=== PATIENT | male | born 1955 | race Caucasian/White ===

== ENCOUNTER 2019-01-27 12:42 | Emergency (ER) | payer OTHER, SELFPAY ==
[2019-01-27 12:48] VITALS: BP 147/96; PULSE 62; RESP 14; TEMP 36.6; O2SAT 99
--- NOTE | 2019-01-27 12:49 | DI.RAD.S_ITS ---
PROCEDURE: XR TOE RT MIN 2V INDICATIONS: crush injury rt 4th toe TECHNIQUE: Three fourth views of the fourth toe acquired. COMPARISON: None. FINDINGS: Bones: No definite fractures or dislocations. No suspicious bony lesions. There is slight irregularity at the proximal metadiaphyseal junction of the fourth toe, conceivably a nondisplaced fracture. Soft tissues: No suspicious soft tissue densities. IMPRESSION: A definite fracture is not known. Slight irregularity at the base of the proximal phalanx of the fourth digit is noted, and delayed plain films could be obtained to assess for manager of change time that would indicate nondisplaced fracture is present at that site. Dictated by: Aubrey Bah M.D. on 01/27/2019 at 13:18 Approved by: Aubrey Bah M.D. on 01/27/2019 at 13:21
--- NOTE | 2019-01-27 13:26 | ED_ITS ---
HPI - Extremity Injury (Lower) <FRANCESCO Mcdoanld - Last Filed: 01/28/19 01:39> General Chief Complaint: Extremity Injury, Lower Stated Complaint: Thinks broke toe on Rt foot Time Seen by Provider: 01/27/19 12:55 Source: patient Mode of arrival: ambulatory Limitations: no limitations History of Present Illness HPI Narrative: This is a pleasant 63-year-old gentleman, nonsmoker, who presents with significant other with right 4th toe swelling and bruise. He reports he has history of neuropathy. He injured this toe by walking into bed post late at night after using restroom 3 nights ago. The patient reports pain is not too severe but noticed bruising today and was concerned. He denies any other injuries and reports he is able to move affected toe without difficulty. Related Data Home Medications Medication Instructions Recorded Confirmed atorvastatin 40 mg PO DAILY 01/27/19 01/27/19 citalopram 20 mg PO DAILY 01/27/19 01/27/19 diclofenac sodium 50 mg PO TID 01/27/19 01/27/19 gabapentin 300 mg PO TID 01/27/19 01/27/19 lisinopril-hydrochlorothiazide 1 tab PO DAILY 01/27/19 01/27/19 varenicline [Chantix Continuing 1 dose PO DIRECTED 01/27/19 01/27/19 Month Box] Review of Systems <FRANCESCO Mcdonald - Last Filed: 01/28/19 01:39> Review of Systems ROS Unobtainable: All systems reviewed & are unremarkable except as noted in HPI and below PFSH <FRANCESCO Mcdonald - Last Filed: 01/28/19 01:39> Medical History (Updated 01/27/19 @ 13:39 by FRANCESCO Mcdonald) HTN (hypertension) (Acute) Hyperlipidemia (Acute) Neuropathy (Acute) Social History (Updated 01/27/19 @ 13:30 by FRANCESCO Mcdonald) Smoking Status: Never smoker Exam <FRANCESCO Mcdonald - Last Filed: 01/28/19 01:39> Narrative Exam Narrative: General appearance: well developed, well nourished, in no acute distress. Head: normocephalic, atraumatic, no scalp lesions, non-tender. Eye: pupil equal, round. EOMI. Nose: nares patent. Oral: mucosa moist. Neck/Thyroid: neck supple, full range of motion, no visible masses. Skin: no suspicious rashes, lesions over visible areas. Warm and dry. Heart: no clubbing, no cyanosis, no edema. Lungs: Breathing even and unlabored. No stridor. No accessory muscles used. Chest: normal shape and expansion. Abdomen: non-obese, non-distended. Neurologic: alert and oriented. Cognitive exam, LABOR RELATIONS SPECIALIST and PNS grossly intact on informal exam. Psych: good eye contact, normal affect. Initial Vital Signs Initial Vital Signs: Vital Signs Temperature 97.9 F 01/27/19 12:48 Pulse Rate 62 01/27/19 12:48 Respiratory Rate 14 01/27/19 12:48 Blood Pressure 147/96 H 01/27/19 12:48 Pulse Oximetry 99 01/27/19 12:48 Extrem Right upper extremity: normal to inspection and full ROM Left upper extremity: normal to inspection and full ROM Right lower extremity: foot Details: normal capillary refill, toes with normal ROM, edema (mild to R 4th toe on dorsum and plantar aspect), ecchymosis (R 4th toe on dorsum and plantar aspect), vascular exam Details: dorsalis pedis pulse present, posterior tibial pulse present and normal capillary refill and tendon exam Details: active flexion normal and active extension normal; no tenderness Left lower extremity: normal to inspection and full ROM <Morenita Levi MD - Last Filed: 01/30/19 07:10> Initial Vital Signs Initial Vital Signs: Vital Signs Temperature 97.9 F 01/27/19 12:48 Pulse Rate 62 01/27/19 12:48 Respiratory Rate 14 01/27/19 12:48 Blood Pressure 147/96 H 01/27/19 12:48 Pulse Oximetry 99 01/27/19 12:48 Course <FRANCESCO Mcdonald - Last Filed: 01/28/19 01:39> Orders Ordered: ED Orders 01/27/19 12:49 XR toe RT min 2V Stat Vital Signs - 8 hr 01/27/19 12:48 Temperature 97.9 F Pulse Rate 62 Respiratory Rate 14 Blood Pressure 147/96 H Pulse Oximetry 99 <Morenita Levi MD - Last Filed: 01/30/19 07:10> Orders Ordered: ED Orders 01/27/19 12:49 XR toe RT min 2V Stat Vital Signs - 8 hr 01/27/19 12:48 Temperature 97.9 F Pulse Rate 62 Respiratory Rate 14 Blood Pressure 147/96 H Pulse Oximetry 99 MDM - Extremity Injury (Lower) <FRANCESCO Mcdonald - Last Filed: 01/28/19 01:39> Differential Diagnosis Likely fracture of toe and other (toe sprain, occult toe fracture) Medical Records Attestation: I reviewed the patient's medical records. Imaging Data XR-Toe R: Radiologist's impression: [address] [address] XRay Report Signed Patient: Matty Dunbar SMR#: [id number] : 6Acct:[id number] Age/Sex: 63 / MDate of Service: 01/27/19 Loc: ED Accession Number: [id number] Procedure: XR toe RT min 2V Ordering Provider: Daniel Bazan PROCEDURE: XR TOE RT MIN 2V INDICATIONS: crush injury rt 4th toe TECHNIQUE: Three fourth views of the fourth toe acquired. COMPARISON: None. FINDINGS: Bones: No definite fractures or dislocations. No suspicious bony lesions. There is slight irregularity at the proximal metadiaphyseal junction of the fourth toe, conceivably a nondisplaced fracture. Soft tissues: No suspicious soft tissue densities. IMPRESSION: A definite fracture is not known. Slight irregularity at the base of the proximal phalanx of the fourth digit is noted, and delayed plain films could be obtained to assess for microsoft exchange administrator time that would indicate nondisplaced fracture is present at that site. Dictated by: Aubrey Bah M.D. on 01/27/2019 at 13:18 Approved by: Aubrey Bah M.D. on 01/27/2019 at 13:21 [facility] Narrative Medical decision making narrative: The patient sustained right 4th toe injury by walking into bed post 3 nights ago. Today, he noticed increasing swelling and discoloration and came in to ED for an evaluation. The patient reports pain is not significant and not sure if this is due to paresthesia. The x-ray test shows on right toe no definite fracture or dislocation at this time. The affected toe has diilp-taped and the patient declined the postop shoes at this time stating he has shoe insert could work as hard sole shoes. Return pre cautions were discussed with the patient and patient advised to follow up with his primary care physician if the pain persists for another x-ray test. Patient agrees with treatment plan and no further questions were expressed at this time. Discharge Plan Departure Patient Disposition: Home Clinical Impression: Sprain of toe Qualifiers: Encounter type: initial encounter Qualified Code(s): S93.509A - Unspecified sprain of unspecified toe(s), initial encounter Discharge Date/Time: 01/27/19 13:46 Instructions: DI for Toe Sprain Activity Restrictions/Additional Instructions: You have been diagnosed with [toe sprain. According to the x-ray test today there is no definite fractures or dislocations are seen but some irregularity at the base of the 5th proximal phalanx of affected toe. If discomfort and swelling persists, please ask her provider to repeat the x-ray test. We dilip tape the toe for splint affect. Please continue to use hard sole shoe and if needed for support]. What to do: *Take your medications as directed. You can take [id number] Tylenol or Motrin as needed for discomfort. You could elevate and ice pack on affected toe as needed for swelling. *Follow up with your primary care provider in 2-3 days, call for an appointment. Let them know you were seen in the ED and that we asked you to be seen in follow up. *Return to ED if you have any new, worsening, or concerning symptoms, such as [increasing pain, swelling, warmth, redness, drainage, any acute concerns]. Prescriptions: No Action atorvastatin 40 mg Tablet 40 mg PO DAILY RF: 0 citalopram 20 mg Tablet 20 mg PO DAILY RF: 0 gabapentin 300 mg Capsule 300 mg PO TID RF: 0 diclofenac sodium 50 mg Tablet,Delayed Release (Dr/Ec) 50 mg PO TID RF: 0 lisinopril-hydrochlorothiazide 10-12.5 mg Tablet 1 tab PO DAILY RF: 0 Chantix Continuing Month Box 1 mg Tablet 1 dose PO DIRECTED RF: 0 Referrals: [facility] [Outside]
== END 2019-01-27 13:46 | disposition home or self-care (01) ==
PROVIDERS: Emergency Provider Nurse Practitioner Family
DX: S93.509A Unspecified sprain of unspecified toe(s), initial encounter (principal)
CPT/HCPCS: 73660; 99282; 99283

== ENCOUNTER → 2019-12-29 16:01 | Outpatient (CLI) | payer OTHER, SELFPAY ==
--- NOTE | 2019-12-29 | DI.MRI.S_ITS ---
PROCEDURE: MR LUMBAR SPINE WO CON INDICATIONS: Sciatica, right side TECHNIQUE: Noncontrast sagittal T1 spin echo and T2 fast echo, sagittal STIR, axial T1 and T2 fast spin echo through the lumbar spine. In cases with scoliosis, additional coronal T2 fast spin echo may be performed. COMPARISON: Outside Facility, RG, XR L-SPINE 2-3V, 03/24/2010, 15:54. Outside Facility, RG, MRI L-SPINE W/O CONTRAST, 06/17/2011, 15:28. Outside Facility, RG, XR L-SPINE 4-6V, 04/22/2019, 14:38. Outside Facility, RG, MRI L-SPINE W/O CONTRAST, 03/12/2019, 16:12. FINDINGS: Image quality: Excellent. Alignment and Curvature: There is mild to moderate levoconvex lumbar scoliosis. Minimal anterolisthesis is seen at the L5-S1 level. Bone Marrow: Marrow is of normal overall signal. No acute vertebral body compression fractures. Spinal Cord: Conus medullaris terminates at the L1 level. Visualized cord demonstrates normal signal and size. Paraspinous Soft Tissues: No paravertebral masses. T12-L1: Normal appearance. L1-L2: No significant abnormality is seen. L2-L3: The disc height and disc signal are relatively well preserved. Bridging endplate osteophytes are seen. Mild generalized disc bulge is seen. Mild facet joint hypertrophy is seen. No significant neural foraminal or central canal narrowing can be seen. When comparison is made with the prior examination, these findings are similar. L3-L4: The disc height and disc signal are relatively well preserved. Mild to moderate disc bulge is seen. Mild to moderate facet hypertrophy is seen at this level. There is mild to moderate right-sided and no significant left-sided neural foraminal narrowing seen. Mild central canal narrowing is seen. When comparison is made with the prior examination, these findings are similar. L4-L5: Moderate loss of disc height is seen. Loss of disc signal is seen. Moderate disc bulge is seen, which is eccentric to the right. There is a right lateral recess/right foraminal disc extrusion seen, with mild superior migration of the disk material. Prominent facet hypertrophy is seen at this level. There is at least moderate left-sided and moderate to severe right-sided neural foraminal narrowing seen. There is a degree of compression seen upon the exiting nerve roots. Moderate central canal narrowing is seen. There is been mild progression of degenerative change compared to the prior outside MRI. L5-S1: The disc height and disc signal are relatively well preserved. Mild to moderate disc bulge is seen, which is eccentric to the right. There is prominent facet hypertrophy seen, left worse than right. There is at least moderate right-sided and moderate to severe left-sided neural foraminal narrowing seen. There is a degree of compression seen upon the exiting nerve roots. Minimal central canal narrowing is seen. When comparison is made with the prior examination, these findings are similar. IMPRESSION: Multiple levels of lumbar spine degenerative change are seen, which are most prominent inferiorly. The degenerative changes are mildly progressed at the L4-5 level compared to the prior MRI. The degenerative changes otherwise appear stable. Levoconvex scoliosis. Dictated by: Bobby Kemp M.D. on 12/29/2019 at 16:36 Approved by: Bobby Kemp M.D. on 12/29/2019 at 16:42
== END ==
PROVIDERS: PCP Internal Medicine; Referring Provider Internal Medicine; Visit Provider Internal Medicine
DX: M54.31 Sciatica, right side (principal); M47.816 Spondylosis without myelopathy or radiculopathy, lumbar region; M47.817 Spondylosis without myelopathy or radiculopathy, lumbosacral region; M41.86 Other forms of scoliosis, lumbar region
CPT/HCPCS: 72148

== ENCOUNTER → 2020-02-23 14:40 | Outpatient (CLI) | payer OTHER, SELFPAY ==
[2020-02-24 12:34] LABS: COVID19 Sendout Not Detected (Not Detect)
== END ==
PROVIDERS: PCP Internal Medicine; Visit Provider Physician Assistant
DX: Z11.59 Encounter for screening for other viral diseases (principal)
CPT/HCPCS: 87635

== ENCOUNTER 2020-02-26 13:45 | Outpatient (CLI) | payer OTHER, SELFPAY ==
[2020-02-26] VITALS (8 sets, daily range): BP systolic 100–121; BP diastolic 53–69; PULSE 61–73; RESP 12–17; TEMP 36.3; O2SAT 94–98
--- NOTE | 2020-02-26 13:49 | DI.RAD.S_ITS ---
PROCEDURE: PAIN L INTERLAMINAR/CAUDAL INJ INDICATIONS: SPONDYLOSIS COMPARISON: Outside Facility, RG, XR L-SPINE 4-6V, 04/22/2019, 14:38. [facility], MR, MR LUMBAR SPINE WO CON, 12/29/2019, 16:35. FINDINGS: Fluoroscopic spot filming was performed to verify placement of a spinal needle at the L4-L5 level, as labeled on the films. Appropriate location of the needle tip was confirmed by injection of iodinated contrast. IMPRESSION: Intraprocedural examination within normal limits. Dictated by: Bobby Kemp M.D. on 02/26/2020 at 16:26 Approved by: Bobby Kemp M.D. on 02/26/2020 at 16:26
[2020-02-26] MEDS: fentaNYL 100 MCG/2 ML INJ 50 MCG IV (14:40)
[2020-02-26] MEDS: MIDAZOLAM 5 MG/5 ML VIAL IV (14:40)
[2020-02-26] MEDS: DEXAMETHASONE 10 MG/ML VIAL 20 MG INJ (14:49)
[2020-02-26] MEDS: IOPAMIDOL 15 ML VIAL 3 ML INJ (14:49)
[2020-02-26] MEDS: BETAMETHASONE 30 MG/5 ML MDV 6 MG INJ (14:49)
[2020-02-26] MEDS: BUPIVACAINE 0.25% (PF) VIAL 2 ML INJ (14:49)
--- NOTE | 2020-02-26 14:56 | P.PCN_ITS ---
Date/Time/Diagnoses Date of procedure: 02/26/20 Time of procedure: 14:56 Pre-procedure diagnosis: 1. HNP WITH RADICULAR FEATURES, 2. MULTILEVEL CENTRAL STENOSIS, Post-procedure diagnosis: same Procedure Notes Procedure: 1. FLUOROSCOPICALLY GUIDED CONTRAST CONTROLLED INTERLAMINAR EPIDURAL STEROID INJECTION - PARA RIGHT L4/5 Indications: Matty is referred by Dr. Trujillo for treatment of Bilateral Foraminal Stenosis R>L LE symptoms. Physician: Ritesh Martini Total Fluoroscopy time (seconds): 7 Total sedation minutes: 9 Complications: none Procedure in detail & Post-procedure care: FINDINGS Multilevel Central Spinal Stenosis with Nerve Root Compression DESCRIPTION OF PROCEDURE Fluoroscopically guided, contrast-controlled L4/5 translaminar epidural steroid injection. Following review of allergy and review of potential side effects and complications, including, but not necessarily limited to, infection, allergic reaction, local tissue breakdown, temporary as well as permanent nerve injury, paralysis, stroke and possible , the patient indicated that the patient understood and agreed to proceed. An informed consent document was signed by the patient, witnessed by a nurse, and placed in the patient's chart. Additionally, other treatment options including modalities, medications, and physical therapy were reviewed with the patient. After review of previous anaesthesic history and IV conscious sedation the patient was deemed safe to proceed with today?s procedure with IV conscious sedation as ASA class II designation. Safety time-out was performed to confirm patient ID, procedure to be performed and site of procedure. IV sedation was accomplished with a combination of 3mg of Versed and 50mcg of Fentanyl was administered by the RN after DO order, titrated to patient comfort during the course of the procedure while the patient remained responsive to all verbal commands In the prone position, following sterile prep and drape of the lumbar region, the L4/5 translaminar space was identified fluoroscopically. The skin was anesthetized via a 25-gauge, 1.5inch needle with 1% lidocaine solution. At this point, a 22-gauge short bevel spinal needle was atraumatically introduced and advanced under fluoroscopic guidance into the region of the L4/5 translaminar space. Depth was confirmed on lateral view. Radiological data, including multiple fluoroscopic views of the lumbar spine, reveal a spinal needle at the L4/5 translaminar space. Lateral views then show placement of the needle in the epidural space. Subsequent views show contrast material flowing superiorly and inferiorly in the epidural space. No vascular or intrathecal uptake is observed. At this point, using loss of resistance technique with saline and air, the epidural space was entered. This was confirmed following negative aspiration with injection of approximately 1.5cc of Isovue 200, showing excellent epidural flow without vascular or intrathecal uptake. At this point, 1cc of 1% lidocaine solution combined with 3cc or 20mg of dexamethasone and 6mg betamethasone was injected without incident. The patient tolerated the procedure well without signs or symptoms of complications prior to transfer to the recovery area continued monitoring without incident. The patient was then transferred to the recovery area where they were observed for an appropriate period of time after the injection. The patient reported a VAS score of 8 prior to the procedure and a post- procedure VAS of 1. POST OP INSTRUCTIONS The patient was provided a Pain Log to continue to record their response to the target-specific procedure prior to follow-up visit with their referring physician. Additionally, specific post-injection care instructions and a contact number to our office were provided if concerns arise regarding possible complications associated with the procedure are suspected.
== END 2020-02-26 15:31 | disposition home or self-care (01) ==
PROVIDERS: PCP Internal Medicine; Referring Provider Physical Medicine & Rehabilitation; Visit Provider Physical Medicine & Rehabilitation
DX: M51.16 Intervertebral disc disorders with radiculopathy, lumbar region (principal); M48.061 Spinal stenosis, lumbar region without neurogenic claudication
CPT/HCPCS: 62323; J0702; J1100; J2250; J3010

== ENCOUNTER → 2020-05-08 13:18 | Outpatient (CLI) | payer OTHER, SELFPAY ==
[2020-05-08 15:13] LABS: COVID19 -Nasal RAPID Negative (Negative)
== END ==
PROVIDERS: PCP Internal Medicine; Visit Provider Physician Assistant
DX: Z11.59 Encounter for screening for other viral diseases (principal)
CPT/HCPCS: 87635

== ENCOUNTER → 2020-05-19 13:41 | Outpatient (CLI) | payer OTHER, SELFPAY ==
--- NOTE | 2020-05-19 13:42 | DI.RAD.S_ITS ---
PROCEDURE: XR LUMBAR SPINE MIN 4V INDICATIONS: update imaging TECHNIQUE: 5 views of the lumbar spine were acquired. COMPARISON: 04/22/19. FINDINGS: Bones: No fracture. Multilevel degenerative endplate sclerosis and spurring. Diffuse facet arthropathy. Trace retrolisthesis of L3 on L4 and grade 1 anterolisthesis of L4 on L5. Moderate narrowing of the L4-L5 disc space. Mild narrowing of the remaining lumbar disc spaces. Mild levocurvature. Mild bilateral hip joint degeneration. Soft tissues: Overlying bowel gas pattern is normal. No suspicious soft tissue calcifications. Scattered vascular calcifications seen in the aorta. Oblique images: No pars defects. IMPRESSION: Mild levocurvature, as before. Diffuse spondylosis and facet arthropathy. No definite interval change since 04/22/19 Multilevel spondylolisthesis as above. Dictated by: Kelechi De La Fuente M.D. on 05/19/2020 at 15:51 Approved by: Kelechi De La Fuente M.D. on 05/19/2020 at 15:53
== END ==
PROVIDERS: PCP Internal Medicine; Referring Provider Physical Medicine & Rehabilitation; Visit Provider Physical Medicine & Rehabilitation
DX: M47.26 Other spondylosis with radiculopathy, lumbar region (principal); M16.0 Bilateral primary osteoarthritis of hip; M43.16 Spondylolisthesis, lumbar region; M96.1 Postlaminectomy syndrome, not elsewhere classified
CPT/HCPCS: 72110

== ENCOUNTER → 2020-06-08 14:41 | Outpatient (ROUT) | payer OTHER, SELFPAY ==
[2020-06-08 15:20] LABS: Aspartate Aminotransferase 29 IU/L (17-59); Blood Urea Nitrogen 23 mg/dL (9-20); Calcium 9.9 mg/dL (8.4-10.2); Carbon Dioxide 28 mmol/L (22-32); Chloride 104 mmol/L (98-107); Cholesterol 138 mg/dL (140-199); Estimated Glomerular Filt Rate > 60.0 mL/min (>60); Glucose 122 mg/dL (80-110); HDL Cholesterol 34 mg/dL (40-60); HEMOLYSIS < 15 (0-50); LDL Cholesterol Calculated 55 mg/dL (<100); Potassium 4.1 mmol/L (3.4-5.1); Sodium 136 mmol/L (137-145); Triglycerides 246 mg/dL (35-150)
[2020-06-08 15:23] LABS: Hemoglobin A1C% w Est Avg Glu 6.3 % (4.0-6.0)
[2020-06-08 15:51] LABS: Prostate Specific Antigen 0.511 ng/mL (0.10-4.00)
== END ==
PROVIDERS: PCP Internal Medicine; Visit Provider Internal Medicine
DX: Z00.00 Encounter for general adult medical examination without abnormal findings (principal); I10 Essential (primary) hypertension; E78.2 Mixed hyperlipidemia; R73.01 Impaired fasting glucose; Z12.5 Encounter for screening for malignant neoplasm of prostate
CPT/HCPCS: 80048; 80061; 83036; 84153; 84450

== ENCOUNTER → 2020-06-29 12:24 | Outpatient (CLI) | payer OTHER, SELFPAY ==
[2020-06-29 16:25] LABS: COVID19 -Nasal RAPID Negative (Negative)
== END ==
PROVIDERS: PCP Internal Medicine; Visit Provider Physical Medicine & Rehabilitation
DX: Z20.822 Contact with and (suspected) exposure to COVID-19 (principal)
CPT/HCPCS: 87635; C9803

== ENCOUNTER 2020-07-01 09:01 | Outpatient (CLI) | payer OTHER, SELFPAY ==
[2020-07-01] VITALS (9 sets, daily range): BP systolic 88–132; BP diastolic 59–78; PULSE 57–69; RESP 11–18; TEMP 36.3; O2SAT 93–99
--- NOTE | 2020-07-01 09:06 | DI.RAD.S_ITS ---
PROCEDURE: PAIN L/SI FACET INJ/BLK 1STL INDICATIONS: SPONDYLOSIS COMPARISON: [facility], XA, PAIN L INTERLAMINAR/CAUDAL INJ, 02/26/2020, 14:45. FINDINGS: Fluoroscopic spot filming was performed to verify placement of spinal needles on the right at the L4-L5 and L5-S1 level(s), as labeled on the films. Appropriate location(s) of the needle tip(s) was confirmed by injection of iodinated contrast. IMPRESSION: Intraprocedural examination within normal limits. Dictated by: Bobby Kemp M.D. on 07/01/2020 at 9:23 Approved by: Bobby Kemp M.D. on 07/01/2020 at 9:24
[2020-07-01] MEDS: MIDAZOLAM 5 MG/5 ML VIAL IV (09:39)
[2020-07-01] MEDS: fentaNYL 100 MCG/2 ML INJ 50 MCG IV (09:39)
[2020-07-01] MEDS: BUPIVACAINE 0.5% (PF) VIAL 2 ML INJ (09:46)
[2020-07-01] MEDS: IOPAMIDOL 15 ML VIAL 3 ML INJ (09:47)
[2020-07-01] MEDS: BETAMETHASONE 30 MG/5 ML MDV 12 MG INJ (09:47)
--- NOTE | 2020-07-01 09:55 | P.PCN_ITS ---
Date/Time/Diagnoses Date of procedure: 07/01/20 Time of procedure: 09:55 Pre-procedure diagnosis: 1. FACET ARTHROPATHY, 2. AXIAL LBP, 3. MULTILEVEL DDD Post-procedure diagnosis: same Procedure Notes Procedure: 1. FLUOROSCOPICALLY GUIDED CONTRAST CONTROLLED FACET JOINT INJECTIONS RIGHT L4/5, L5/S1 Indications: Matty is referred by Dr. Trujillo for treatment of Axial LBP Physician: Ritesh Martini Total Fluoroscopy time (seconds): 4 Total sedation minutes: 12 Complications: none Procedure in detail & Post-procedure care: FINDINGS Multilevel Facet Arthropathy with Clinically significant axial LBP DESCRIPTION OF PROCEDURE Fluoroscopically guided, contrast-controlled right L4/5, L5/S1 facet joint injections. Following review of allergy and review of potential side effects and complications, including, but not necessarily limited to, infection, allergic reaction, local tissue breakdown, stroke, temporary or permanent nerve injury, paralysis, and possible , the patient indicated that the patient understood and agreed to proceed. An informed consent document was signed by the patient, witnessed by a nurse, and placed in the patient's chart. Additionally, other treatment options including medications, modalities, and physical therapy were reviewed with the patient. After review of previous anaesthesic history and IV conscious sedation the patient was deemed safe to proceed with today?s procedure with IV conscious sedation as ASA class II designation. Safety time-out was performed to confirm patient ID, procedure to be performed and site of procedure. IV sedation was accomplished with a combination of 3mg of Versed and 50mcg of Fentanyl was administered by the RN after DO order, titrated to patient comfort during the course of the procedure while the patient remained responsive to all verbal commands. In the prone position, following sterile prep and drape of the lumbar region, the posterior aspect of the right L4/5, L5/S1 facet joints were identified fluoroscopically. The skin was anesthetized via a 25-gauge 1.5-inch needle with 1% lidocaine solution into the corresponding facet joints. At this point, a 22- gauge 3.5-inch spinal needle was atraumatically introduced and advanced under fluoroscopic guidance into the corresponding facet joints. Following negative aspiration, injections of approximately 0.2-cc of Isovue 200 confirmed i nterarticular placement without vascular uptake. Radiological data, including multiple fluoroscopic views of the lumbosacral spine, reveal a spinal needle at the right L4/5, L5/S1 facet joints. Subsequent views show flow of contrast material both superiorly and inferiorly within the joint space without vascular or intrathecal uptake. At this point, a total of 0.5cc including a mixture of 0.25cc Marcaine and 0.25cc betamethasone was injected without complication into each of the corresponding facet joints. The procedure tolerated the procedure well without signs or symptoms of complic ations prior to transfer to the recovery area continued monitoring without incident. The patient was then transferred to the recovery area where they were observed for an appropriate period of time after the injection. The patient reported a VAS score of 7 prior to the procedure and a post-procedure VAS of 0. POST OP INSTRUCTIONS The patient was provided a Pain Log to continue to record their response to the target-specific procedure prior to follow-up visit with their referring physician. Additionally, specific post-injection care instructions and a contact number to our office were provided if concerns arise regarding possible complications associated with the procedure are suspected.
== END 2020-07-01 10:21 | disposition home or self-care (01) ==
LOC: RAD 09:06
PROVIDERS: PCP Internal Medicine; Referring Provider Physical Medicine & Rehabilitation; Visit Provider Physical Medicine & Rehabilitation
DX: M47.816 Spondylosis without myelopathy or radiculopathy, lumbar region (principal); M47.817 Spondylosis without myelopathy or radiculopathy, lumbosacral region; M54.5 Low back pain
CPT/HCPCS: 64493; 64494; 99152; J0702; J2250; J3010

== ENCOUNTER → 2020-08-06 20:30 | Outpatient (ROUT) | payer OTHER, SELFPAY ==
[2020-08-06 20:54] LABS: Appearance Urine UA SL CLOUDY; Bilirubin Urine UA NEGATIVE (NEGATIVE); Color Urine UA YELLOW; Glucose Urine UA NEGATIVE (Negative); Ketones Urine UA NEGATIVE (NEGATIVE); Leukocyte Esterase Urine UA 2+ (NEGATIVE); Nitrite Urine UA NEGATIVE (Negative); Occult Blood Urine UA 2+ (Negative); Protein Urine UA TRACE (Negative); Specific Gravity Urine UA 1.025 (1.000-1.035); Urobilinogen Urine UA 0.2 E.U./dL (0.2)
[2020-08-06 21:18] LABS: Amorphous Sediment Urine 1+; Bacteria Urine Many (>30); Culture Indicated Urine Specimen Cultured; RBC Urine 30-100/HPF (0-5/HPF); Renal Epithelial Cells Urine 0-1/HPF (0-1/HPF); Squamous Epithelial Cell Urine 1-5 /HPF (0-5/HPF); Transitional Epi Cells Urine 0-1/HPF (0-5/HPF); WBC Urine 30-100/HPF (0-5/HPF); White Blood Cell Casts Urine 5-10/LPF
== END ==
PROVIDERS: PCP Internal Medicine; Visit Provider Physician Assistant
DX: N39.0 Urinary tract infection, site not specified (principal); R35.0 Frequency of micturition
CPT/HCPCS: 81001; 87077; 87086; 87147

== ENCOUNTER → 2020-09-13 14:10 | Outpatient (CLI) | payer OTHER, SELFPAY ==
[2020-09-13 17:57] LABS: COVID19 -Nasal RAPID Negative (Negative)
== END ==
PROVIDERS: PCP Internal Medicine; Visit Provider Physical Medicine & Rehabilitation
DX: Z01.812 Encounter for preprocedural laboratory examination (principal); Z20.822 Contact with and (suspected) exposure to COVID-19
CPT/HCPCS: 87635; C9803

== ENCOUNTER 2020-09-14 10:26 | Outpatient (CLI) | payer OTHER, SELFPAY ==
--- NOTE | 2020-09-14 10:28 | DI.RAD.S_ITS ---
PROCEDURE: PAIN L/S TRANSFORAMINAL INJECT INDICATIONS: SPONDYLOSIS COMPARISON: [facility], , PAIN SI JOINT INJECTION, 09/14/2020, 11:31. FINDINGS: Fluoroscopic spot filming was performed to verify placement of a spinal needle at the L4-L5 level, as labeled on the films. Appropriate location of the needle tip was confirmed by injection of iodinated contrast. IMPRESSION: Intraprocedural examination within normal limits. Dictated by: Bobby Kemp M.D. on 09/14/2020 at 12:10 Approved by: Bobby Kemp M.D. on 09/14/2020 at 12:11
--- NOTE | 2020-09-14 10:28 | DI.RAD.S_ITS ---
PROCEDURE: PAIN SI JOINT INJECTION INDICATIONS: SACROILIAC DISORDER COMPARISON: [facility], XA, PAIN L/S TRANSFORAMINAL INJECT, 09/14/2020, 11:20. FINDINGS: On this intraprocedural image, there is a spinal needle seen overlying the inferior aspect of the right sacroiliac joint. The appropriate position of the tip of the needle was confirmed by injection of a small amount of iodinated contrast. IMPRESSION: Intraprocedural examination within normal limits. Dictated by: Bobby Kemp M.D. on 09/14/2020 at 12:11 Approved by: Bobby Kemp M.D. on 09/14/2020 at 12:11
[2020-09-14 11:15] VITALS: BP 134/77; PULSE 51; RESP 12; O2SAT 99
[2020-09-14] MEDS: fentaNYL 100 MCG/2 ML INJ 50 MCG IV (11:15)
[2020-09-14] MEDS: MIDAZOLAM 5 MG/5 ML VIAL IV (11:15)
[2020-09-14 11:20] VITALS: BP 135/81; PULSE 54; RESP 10; O2SAT 96
[2020-09-14] MEDS: IOPAMIDOL 15 ML VIAL 3 ML INJ (11:21)
[2020-09-14] MEDS: BETAMETHASONE 30 MG/5 ML MDV 6 MG INJ (11:21)
[2020-09-14] MEDS: DEXAMETHASONE 10 MG/ML VIAL 20 MG INJ (11:21)
[2020-09-14] MEDS: BUPIVACAINE 0.5% (PF) VIAL 2 ML INJ (11:22)
[2020-09-14 11:25] VITALS: BP 118/72; PULSE 54; RESP 12; O2SAT 96
[2020-09-14 11:30] VITALS: BP 119/73; PULSE 55; RESP 10; O2SAT 99
--- NOTE | 2020-09-14 11:38 | P.PCN_ITS ---
Date/Time/Diagnoses Date of procedure: 09/14/20 Time of procedure: 11:38 Pre-procedure diagnosis: 1. FORAMINAL STENOSIS WITH LE SYMPTOMS Post-procedure diagnosis: same Procedure Notes Procedure: 1. FLUOROSCOPICALLY GUIDED CONTRAST CONTROLLED TRANSFORAMINAL EPIDURAL STEROID INJECTION - RIGHT L4/5 TFESI Indications: Matty is referred by Dr. Trujillo for treatment of Foraminal Stenosis with Right LE Symptoms Physician: Ritesh Martini Total Fluoroscopy time (seconds): 18 Total sedation minutes: 18 Complications: none Procedure in detail & Post-procedure care: FINDINGS Foraminal Nerve Root Compression secondary to disc disease and facet hypertrophy DESCRIPTION OF PROCEDURE Following review of allergy and review of potential side effects and complications, including, but not necessarily limited to, infection, allergic reaction, local tissue breakdown, stroke, temporary or permanent nerve injury, paralysis, and possible , the patient indicated that the patient understood and agreed to proceed. An informed consent document was signed by the patient, witnessed by a nurse, and placed in the patient's chart. Additionally, other treatment options including medications, modalities, and physical therapy were reviewed with the patient. After review of previous anaesthesic history and IV conscious sedation the patient was deemed safe to proceed with today?s procedure with IV conscious sedation as ASA class II designation. Safety time-out was performed to confirm patient ID, procedure to be performed and site of procedure. IV sedation was accomplished with a combination of 3mg of Versed and 50mcg of Fentanyl was administered by the RN after DO order, titrated to patient comfort during the course of the procedure while the patient remained responsive to all verbal co mmands In the prone position following sterile prep and drape of the lumbar region, the right L4/5 posterior neuroforamen was identified fluoroscopically. The skin was anesthetized via a 25-gauge 1.5-inch needle with 1% lidocaine solution. At this point, a 25-gauge 3.5-inch spinal needle was atraumatically introduced and advanced under fluoroscopic guidance through the posterior right L4/5 n euroforamen to approximately the anterior aspect of the canal. Depth was confirmed on lateral view. Following negative aspiration, injection of approximately 1.5cc of Isovue 200 under live fluoroscopy in the AP view confirmed excellent flow along the nerve root, into the epidural space without vascular or intrathecal uptake observed Radiological data, including multiple fluoroscopic views of the lumbosacral spine, reveal a spinal needle at the right L4/5 posterior neuroforamen. Subsequent views show flow of contrast material flowing superiorly and inferiorly along the nerve root confirming epidural flow. Subsequently, a test dose of 1.5 cc of 1% lidocaine solution was administered and patient was observed for two minutes for signs or symptoms of complications, including abdominal pain, shortness of breath, bilateral upper or lower extremity weakness, nausea and vomiting, prior to steroid injection. At this point, a total of 3cc or 20mg of dexamethasone and 6mg of betamethasone was injected without incident. The procedure tolerated the procedure well without signs or symptoms of complications prior to transfer to the recovery area continued monitoring without incident. The patient was then transferred to the recovery area where they were observed for an appropriate time after the injection. The patient reported a VAS score of 7 prior to the procedure and a post-p rocedure VAS of 0. POST OP INSTRUCTIONS The patient was provided a Pain Log to continue to record their response to the target-specific procedure prior to follow-up visit with their referring physician. Additionally, specific post-injection care instructions and a contact number to our office were provided if concerns arise regarding possible complications associated with the procedure are suspected.
[2020-09-14 11:39] VITALS: BP 113/72; PULSE 58; RESP 18; O2SAT 99
--- NOTE | 2020-09-14 11:39 | PM.PROC.IR.1 ---
Date/Time/Diagnoses Date of procedure: 09/14/20 Time of procedure: 11:39 Pre-procedure diagnosis: Sacroiliac joint pain/DJD Post-procedure diagnosis: same Procedure Notes Procedure: Fluoroscopically guided contrast controlled right sacroiliac joint injection Indications: Matty is referred by Dr. Trujillo for treatment of right sacroiliac joint DJD Physician: Ritesh Martini Total Fluoroscopy time (seconds): 18 Total sedation minutes: 18 Complications: none Procedure in detail & Post-procedure care: DESCRIPTION OF PROCEDURE Fluoroscopically guided, contrast controlled right sacroiliac joint injection Following review of allergies and review of potential side effects and complications, including, but not necessarily limited to, infection, allergic reaction, local tissue breakdown, temporary as well as permanent nerve injury, paralysis, stroke and possible , the patient indicated that they understood and agreed to proceed. An informed consent was signed by the patient, witnessed by a nurse, and placed in the patient's chart. Additionally, other treatment options including modalities, medications, and physical therapy were reviewed with the patient. After review of previous anaesthesic history and IV conscious sedation the patient was deemed safe to proceed with today?s procedure with IV conscious sedation as ASA class II designation. Safety time-out was performed to confirm patient ID, procedure to be performed and site of procedure. IV sedation was accomplished with a combination of 3mg of Versed and 50mcg of Fentanyl was administered by the RN after DO order, titrated to patient comfort during the course of the procedure while the patient remained responsive to all verbal commands In the prone position following sterile prep and drape of the pelvic region, the hyper lucency on in the inferior aspect of the sacroiliac joint was identified fluoroscopically the skin was anesthetized be a 25 gauge 1 eventual with approximately 2 cc of 1% lidocaine solution. At this point, a 22 gauge 3 in spinal needle was atraumatically introduced and advanced under fluoroscopic guidance into the inferior aspect of the right sacroiliac joint. Following negative aspiration, approximately 0.3cc of Isovue-300 was injected confirming intra-articular placement without vascular uptake. Radiographic data, including multiple fluoroscopic views of the pelvis, reveals a spinal needle in the sacroiliac joint hyper lucent zone. Subsequent view show flow contrast tear superiorly and inferiorly within the joint capsule without vascular intrathecal uptake. At this point a total of 1 of 0.5% Marcaine was combined with 1cc of 6 mg of betamethasone was injected without incident. The procedure tolerated the procedure well without signs or symptoms of complications prior to transfer to the recovery area continued monitoring without incident. The patient was then transferred to the recovery area with a bur observed for an appropriate time after the injection. The patient reverted a vas score of 7 prior to the procedure and post-procedure vas of 1. POSTOP INSTRUCTIONS The patient was provided with a pain like to continue to record the patient's response to the target specific procedure prior to the patient's follow-up visit with the referring physician. Additionally, specific post injection care instructions and a contact number to our office were provided if concerns arise regarding the possible complications associated with procedure are suspected.
[2020-09-14 11:44] VITALS: BP 123/74; PULSE 62; RESP 18; O2SAT 97
== END 2020-09-14 11:50 | disposition home or self-care (01) ==
LOC: RAD 10:28
PROVIDERS: PCP Internal Medicine; Referring Provider Physical Medicine & Rehabilitation; Visit Provider Physical Medicine & Rehabilitation
DX: M53.3 Sacrococcygeal disorders, not elsewhere classified (principal); M46.1 Sacroiliitis, not elsewhere classified; M48.061 Spinal stenosis, lumbar region without neurogenic claudication; M51.16 Intervertebral disc disorders with radiculopathy, lumbar region
CPT/HCPCS: 27096; 64483; 99152; J0702; J1100; J2250; J3010

== ENCOUNTER → 2021-01-10 08:13 | Outpatient (CLI) | payer OTHER, MEDICARE, SELFPAY ==
[2021-01-10 14:50] LABS: COVID19 -Nasal RAPID Negative (Negative)
== END ==
PROVIDERS: PCP Internal Medicine; Visit Provider Physical Medicine & Rehabilitation
DX: Z20.822 Contact with and (suspected) exposure to COVID-19 (principal)
CPT/HCPCS: 87635; C9803

== ENCOUNTER 2021-01-11 08:15 | Outpatient (CLI) | payer OTHER, SELFPAY ==
[2021-01-11] VITALS (8 sets, daily range): BP systolic 106–117; BP diastolic 68–75; PULSE 62–88; RESP 8–20; TEMP 36.4; O2SAT 95–98
--- NOTE | 2021-01-11 08:16 | DI.RAD.S_ITS ---
PROCEDURE: PAIN L INTERLAMINAR/CAUDAL INJ INDICATIONS: SPONDYLOSIS COMPARISON: [facility], XA, PAIN L INTERLAMINAR/CAUDAL INJ, 02/26/2020, 14:45. FINDINGS: Fluoroscopic spot filming was performed to verify placement of a spinal needle at the L4-L5 level, as labeled on the films. Appropriate location of the needle tip was confirmed by injection of iodinated contrast. IMPRESSION: Intraprocedural examination within normal limits. Dictated by: Bobby Kemp M.D. on 01/11/2021 at 9:14 Approved by: Bobby Kemp M.D. on 01/11/2021 at 9:15
[2021-01-11] MEDS: MIDAZOLAM 5 MG/5 ML VIAL IV (09:24)
[2021-01-11] MEDS: fentaNYL 100 MCG/2 ML INJ 50 MCG IV (09:24)
[2021-01-11] MEDS: BUPIVACAINE 0.25% (PF) VIAL 2 ML INJ (09:29)
[2021-01-11] MEDS: BETAMETHASONE 30 MG/5 ML MDV 6 MG INJ (09:30)
[2021-01-11] MEDS: IOPAMIDOL 15 ML VIAL 3 ML INJ (09:30)
[2021-01-11] MEDS: DEXAMETHASONE 10 MG/ML VIAL 20 MG INJ (09:31)
--- NOTE | 2021-01-11 09:38 | P.PCN_ITS ---
Date/Time/Diagnoses Date of procedure: 01/11/21 Time of procedure: 09:39 Pre-procedure diagnosis: 1. HNP WITH RADICULAR FEATURES, 2. MULTILEVEL CENTRAL STENOSIS, Post-procedure diagnosis: same Procedure Notes Procedure: 1. FLUOROSCOPICALLY GUIDED CONTRAST CONTROLLED INTERLAMINAR EPIDURAL STEROID INJECTION -L4/5 Indications: Matty is referred by Dr. Trujillo for treatment of Bilateral Foraminal Stenosis R>L LE symptoms. Physician: Ritesh Martini Total Fluoroscopy time (seconds): 7 Total sedation minutes: 11 Complications: none Procedure in detail & Post-procedure care: FINDINGS Multilevel Central Spinal Stenosis with Nerve Root Compression DESCRIPTION OF PROCEDURE Fluoroscopically guided, contrast-controlled L4/5 translaminar epidural steroid injection. Following review of allergy and review of potential side effects and complications, including, but not necessarily limited to, infection, allergic reaction, local tissue breakdown, temporary as well as permanent nerve injury, paralysis, stroke and possible , the patient indicated that the patient understood and agreed to proceed. An informed consent document was signed by the patient, witnessed by a nurse, and placed in the patient's chart. Additionally, other treatment options including modalities, medications, and physical therapy were reviewed with the patient. After review of previous anaesthesic history and IV conscious sedation the patient was deemed safe to proceed with today?s procedure with IV conscious sedation as ASA class II designation. Safety time-out was performed to confirm patient ID, procedure to be performed and site of procedure. IV sedation was accomplished with a combination of 2mg of Versed and 50mcg of Fentanyl was administered by the RN after DO order, titrated to patient comfort during the course of the procedure while the patient remained responsive to all verbal commands In the prone position, following sterile prep and drape of the lumbar region, the L4/5 translaminar space was identified fluoroscopically. The skin was anesthetized via a 25-gauge, 1.5inch needle with 1% lidocaine solution. At this point, a 22-gauge short bevel spinal needle was atraumatically introduced and advanced under fluoroscopic guidance into the region of the L4/5 translaminar space. Depth was confirmed on lateral view. Radiological data, including multiple fluoroscopic views of the lumbar spine, reveal a spinal needle at the L4/5 translaminar space. Lateral views then show placement of the needle in the epidural space. Subsequent views show contrast material flowing superiorly and inferiorly in the epidural space. No vascular or intrathecal uptake is observed. At this point, using loss of resistance technique with saline and air, the epidural space was entered. This was confirmed following negative aspiration with injection of approximately 1.5cc of Isovue 200, showing excellent epidural flow without vascular or intrathecal uptake. At this point, 1cc of 1% lidocaine solution combined with 3cc or 20mg of dexamethasone and 6mg betamethasone was injected without incident. The patient tolerated the procedure well without signs or symptoms of complications prior to transfer to the recovery area continued monitoring without incident. The patient was then transferred to the recovery area where they were observed for an appropriate period of time after the injection. The patient reported a VAS score of 6 prior to the procedure and a post- procedure VAS of 0. POST OP INSTRUCTIONS The patient was provided a Pain Log to continue to record their response to the target-specific procedure prior to follow-up visit with their referring physician. Additionally, specific post-injection care instructions and a contact number to our office were provided if concerns arise regarding possible complications associated with the procedure are suspected.
--- NOTE | 2021-01-11 15:34 | PC.NURSE ---
at d/c patient stood at chair, was steady on feet able to transfer to w/c reported that his left thigh felt tight, at that time denied any pain or numbness. D[employer]ED [employer]ER assisted in transferring patient into car and he reported that his left leg felt more numb. Patient left, this RN called spoke with patient and son and educated that this can happen from the numbing medication Dr Martini uses in his injections. Educated that he could come back while we monitor him, he declines and states he has help at home. This RN called to make sure he got in the house safely, He reports he did and that he is sitting in a chair and both his legs are weak and numb. Dr Martini was notified. 1200- Called reassessed patient and both legs continue to be numb and his buttocks. Encouraged him to perform ankle waves and move his legs but continue to be very cautious as his legs are still weak. 1440- He reports that he has more strength and that he is able to walk around slowly. Dr Martini noticed and informed patient that Dr López office will call tomorrow to check in on him but that if he has any question to contact his office.
== END 2021-01-11 10:10 | disposition home or self-care (01) ==
LOC: RAD 08:16
PROVIDERS: PCP Internal Medicine; Referring Provider Physical Medicine & Rehabilitation; Visit Provider Physical Medicine & Rehabilitation
DX: M51.16 Intervertebral disc disorders with radiculopathy, lumbar region (principal); M48.061 Spinal stenosis, lumbar region without neurogenic claudication
CPT/HCPCS: 62323; 99152; J0702; J1100; J2250; J3010

== ENCOUNTER → 2021-04-11 13:40 | Outpatient (CLI) | payer OTHER, MEDICARE, SELFPAY ==
[2021-04-11 15:54] LABS: COVID19 -Nasal RAPID Negative (Negative)
== END ==
PROVIDERS: PCP Internal Medicine; Visit Provider Physical Medicine & Rehabilitation
DX: Z20.822 Contact with and (suspected) exposure to COVID-19 (principal)
CPT/HCPCS: 87635; C9803

== ENCOUNTER 2021-04-12 15:26 | Outpatient (CLI) | payer OTHER, SELFPAY ==
[2021-04-12] VITALS (9 sets, daily range): BP systolic 113–137; BP diastolic 65–84; PULSE 57–69; RESP 11–18; TEMP 36.6; O2SAT 96–100
--- NOTE | 2021-04-12 15:30 | DI.RAD.S_ITS ---
PROCEDURE: PAIN L/S FACET INJ/BLK 1ST GABE COMPARISON: [facility], MAYELA, PAIN SI JOINT INJECTION, 09/14/2020, 11:31. [facility], XA, PAIN L/SI FACET INJ/BLK 1STL, 07/01/2020, 9:46. [facility], XA, PAIN L INTERLAMINAR/CAUDAL INJ, 01/11/2021, 9:30. INDICATIONS: SPONDYLOSIS FINDINGS: Intraoperative fluoroscopic images were obtained which demonstrate spinal needles projecting over the right L4, L5, and S1 facets with intra-articular contrast material visualized. IMPRESSION: Expected appearance of intraprocedural images. Dictated by: Slade Davis M.D. on 04/12/2021 at 17:28 Approved by: Slade Davis M.D. on 04/12/2021 at 17:30
[2021-04-12] MEDS: MIDAZOLAM 5 MG/5 ML VIAL IV (15:54)
[2021-04-12] MEDS: fentaNYL 100 MCG/2 ML INJ 50 MCG IV (15:54)
[2021-04-12] MEDS: BUPIVACAINE 0.5% (PF) VIAL 5 ML INJ (16:00)
[2021-04-12] MEDS: IOPAMIDOL 15 ML VIAL 3 ML INJ (16:00)
[2021-04-12] MEDS: LIDOCAINE 1% 20 ML 10 ML INJ (16:01)
--- NOTE | 2021-04-12 16:12 | P.PCN_ITS ---
Date/Time/Diagnoses Date of procedure: 04/12/21 Time of procedure: 16:12 Pre-procedure diagnosis: 1. FACET ARTHROPATHY Post-procedure diagnosis: same Procedure Notes Procedure: 1. BILATERAL- L4, L5 and S1 DIAGNOSTIC MB BLOCKS with LA Anesthetic Indications: Matty is referred by Dr. Trujillo for treatment of Bilateral Axial LBP. Physician: Ritesh Martini Total Fluoroscopy time (seconds): 11 Total sedation minutes: 11 Complications: none Procedure in detail & Post-procedure care: DESCRIPTION OF PROCEDURE Fluoroscopically guided, contrast-controlled bilateral L4, L5 and S1 medial branch blocks with 0.5cc of 0.5% Marcaine. Following review of allergy and review of potential side effects and complications, including, but not necessarily limited to, infection, allergic reaction, local tissue breakdown, nerve injury, paralysis, stroke and possible , the patient indicated that the patient understood and agreed to proceed. An informed consent document was signed by the patient, witnessed by a nurse, and placed in the patient's chart. After review of previous anaesthesic history and IV conscious sedation the patient was deemed safe to proceed with today's procedure with IV conscious sedation as ASA class II designation. Safety time-out was performed to confirm patient ID, procedure to be performed and site of procedure. IV sedation was accomplished with a combination of 2mg of Versed and 50mcg of Fentanyl was administered by the RN after DO order, titrated to patient comfort during the course of the procedure while the patient remained responsive to all verbal commands In the prone position, following sterile prep and drape of the lumbar region, the right L4, L5 and S1 anatomical location of the medial branch of the dorsal ramus was identified fluoroscopically. Subsequently an anesthetic skin wheal using 1% lidocaine solution was initiated at each of the anatomical spots. Subsequently then a 22-gauge 3.5-inch spinal needle was atraumatically introduced and advanced under fluoroscopic guidance at each of the corresponding sites at the right L4, L5 and S1 MB. After negative aspiration, 0.2cc of Isovue 200 was injected, confirming placement without vascular or intrathecal uptake. Subsequently then 0.5cc of 0.5% Marcaine solution was injected at each of the corresponding sites at the right L4, L5 and S1 medial branch locations. The identical procedure was replicated on the left. The patient tolerated the procedure well without signs or symptoms of complications prior to transfer to the recovery area continued monitoring without incident. Post-procedure, the patient was monitored initiating provocative activities to measure the amount of relief from block of the facetogenic pain. The patient reported a VAS of 7 prior to the procedure and a post-procedure VAS of 1. It has been a pleasure to assist in the diagnostic and therapeutic care of your patient. POST OP INSTRUCTIONS The patient was provided with a Pain Log to complete over the next several hours and subsequent days prior to the patient's follow up with the ordering physician. If the patient has tester sound relief to the solution applied, then they may be a candidate for medial branch rhizotomy. The patient is aware, was provided, once again, with a Pain Log and will follow up with the referring physician for review and clinical correlation
== END 2021-04-12 16:31 | disposition home or self-care (01) ==
LOC: RAD 15:29
PROVIDERS: PCP Internal Medicine; Referring Provider Physical Medicine & Rehabilitation; Visit Provider Physical Medicine & Rehabilitation
DX: M47.816 Spondylosis without myelopathy or radiculopathy, lumbar region (principal); M47.817 Spondylosis without myelopathy or radiculopathy, lumbosacral region
CPT/HCPCS: 64493; 64494; 99152; J2250; J3010

== ENCOUNTER → 2021-08-15 14:10 | Outpatient (CLI) | payer OTHER, SELFPAY ==
[2021-08-15 16:06] LABS: COVID19 -Nasal RAPID Negative (Negative)
== END ==
PROVIDERS: PCP Internal Medicine; Visit Provider Physical Medicine & Rehabilitation
DX: Z20.822 Contact with and (suspected) exposure to COVID-19 (principal)
CPT/HCPCS: 87635; C9803

== ENCOUNTER 2021-08-16 07:30 | Outpatient (CLI) | payer OTHER, SELFPAY ==
[2021-08-16] VITALS (11 sets, daily range): BP systolic 108–118; BP diastolic 6–77; PULSE 67–79; RESP 13–18; TEMP 36.2; O2SAT 94–96
--- NOTE | 2021-08-16 08:05 | DI.RAD.S_ITS ---
PROCEDURE: PAIN L/S MED/LAT N RFA BILAT INDICATIONS: Spondylosis COMPARISON: [facility], , PAIN L/S FACET INJ/BLK 1ST GABE, 04/12/2021, 16:56. FINDINGS: Fluoroscopic spot filming was performed to verify placement of spinal needles on both sides at the L4, L5, and S1 levels, as labeled on the films. IMPRESSION: Intraprocedural examination within normal limits. Dictated by: Bobby Kemp M.D. on 08/16/2021 at 11:54 Approved by: Bobby Kemp M.D. on 08/16/2021 at 11:54
[2021-08-16] MEDS: MIDAZOLAM 5 MG/5 ML VIAL IV (08:15)
[2021-08-16] MEDS: fentaNYL 100 MCG/2 ML INJ (08:15)
[2021-08-16] MEDS: BUPIVACAINE 0.5% (PF) VIAL 5 ML INJ (08:27)
[2021-08-16] MEDS: LIDOCAINE 1% 20 ML (08:27)
--- NOTE | 2021-08-16 08:54 | P.PCN_ITS ---
Date/Time/Diagnoses Date of procedure: 08/16/21 Time of procedure: 08:54 Pre-procedure diagnosis: 1. RECALCITRANT FACET ARTHROPATHY Post-procedure diagnosis: same Procedure Notes Procedure: 1. BILATERAL L4 AND L5 MEDIAL BRANCH RADIOFREQUENCY NEUROTOMY AND S1 DORSAL RAMUS BRANCH RADIOFREQUENCY NEUROTOMY Indications: Matty is referred by Dr. Trujillo for treatment of facet arthropathy. Physician: Ritesh Martini Total Fluoroscopy time (seconds): 20 Total sedation minutes: 38 Complications: none Procedure in detail & Post-procedure care: DESCRIPTION OF PROCEDURE Bilateral L4 and L5 medial branch radiofrequency neurotomy and bilateral S1 dorsal ramus radiofrequency neurotomy under fluoroscopy with conscious sedation. The patient is well known to this clinic having undergone previous facet injections with good but temporary relief. The patient has experienced appropriate, concordant relief with previous facet and median branch blocks but the patient's pain has been recalcitrant to further conservative measures. Therefore, based upon the patient's relief and persistent symptoms, the patient is considered an appropriate candidate for facet rhizotomy. All of the patient's questions regarding the risks versus benefits of the procedure, including, but not limited to, bleeding, infection, temporary as well as lasting nerve injury, paralysis, stroke, and , as well treatment alternatives were answered to satisfaction. After obtaining informed consent, denial of pertinent drug allergies, as well as being made aware of the potential risks of bleeding, infection, spinal cord trauma, paralysis, temporary and permanent nerve damage, seizure, stroke, and possible , the patient was brought to the fluoroscopy suite and positioned prone on the fluoroscopy table. The lumbar region was prepped with Betadine and covered with a fenestrated drape in the usual sterile fashion. Appropriate monitors applied including pulse oximeter, pulse, and blood pressure for regular monitoring throughout the procedure. After review of previous anaesthesic history and IV conscious sedation the patient was deemed safe to proceed with today's procedure with IV conscious sedation as ASA class II designation. Safety time-out was performed to confirm patient ID, procedure to be performed and site of procedure. IV sedation was accomplished with a combination of 2mg of Versed and 50mcg of Fentanyl administered by the RN after DO order, titrated to patient comfort during the course of the procedure while the patient remained responsive to all verbal commands. After local infiltration using 1% lidocaine, under fluoroscopic guidance, a 10- cm RF insulated needle with a 10-mm active tip was positioned parallel to the junction of the right sacral ala and the superior articulating process where the S1 dorsal ramus resides. Needle placement was confirmed with motor stimulation of .5v on the right which produced local stimulation without radicular component. The stimulation was then increased to 2v with, once again, only local multifidus stimulation without radicular component. The needle was then removed and the identical procedure was performed along the length of the right L5 medial branch with motor stimulation at .7v on the right. The identical procedure was once again performed along the length of the right L4 medial branch with motor stimulation of .5v on the right. The medial branches were then anesthetised with 0.5% Marcaine. This was then followed by two discreet lesions performed at 80 degrees Celsius for 90 seconds each. The identical procedure was repeated on the left. The patient tolerated the procedure well without signs or symptoms of complications prior to transfer to the recovery area continued monitoring without incident. The patient was then transferred to the recovery area where they were observed for an appropriate period of time after the injection. The patient reported a VAS score of 9 prior to the procedure and a post-procedure VAS of 0. POST OP INSTRUCTIONS The patient was provided a Pain Log to continue to record the patient's response to the target-specific procedure prior to the patient's follow-up visit with the referring physician. Additionally, specific post-injection care instructions and a contact number to our office were provided if concerns arise regarding possible complications associated with the procedure are suspected.
== END 2021-08-16 09:10 | disposition home or self-care (01) ==
LOC: RAD 07:32
PROVIDERS: PCP Internal Medicine; Referring Provider Physical Medicine & Rehabilitation; Visit Provider Physical Medicine & Rehabilitation
DX: M47.816 Spondylosis without myelopathy or radiculopathy, lumbar region (principal); M47.817 Spondylosis without myelopathy or radiculopathy, lumbosacral region
CPT/HCPCS: 64635; 64636; 99152; 99153; J2250; J3010

== ENCOUNTER → 2022-01-09 14:03 | Outpatient (CLI) | payer OTHER, SELFPAY | PROVIDERS: PCP Internal Medicine; Visit Provider Urology | DX: N40.1 Benign prostatic hyperplasia with lower urinary tract symptoms (principal); N13.8 Other obstructive and reflux uropathy; N39.490 Overflow incontinence; R39.198 Other difficulties with micturition; N39.41 Urge incontinence; R35.0 Frequency of micturition; R33.9 Retention of urine, unspecified; R39.13 Splitting of urinary stream; R82.81 Pyuria | CPT/HCPCS: 51798; 81002; 87086 ==

== ENCOUNTER → 2022-03-21 08:51 | Outpatient (CLI) | payer OTHER, SELFPAY | PROVIDERS: PCP Internal Medicine; Visit Provider Urology | DX: R33.9 Retention of urine, unspecified (principal); N40.1 Benign prostatic hyperplasia with lower urinary tract symptoms; N13.8 Other obstructive and reflux uropathy; R35.0 Frequency of micturition; R39.15 Urgency of urination | CPT/HCPCS: 51798; 81002; 87086; 87147 ==

== ENCOUNTER → 2022-04-13 10:01 | Outpatient (CLI) | payer OTHER, SELFPAY ==
[2022-04-13 12:34] LABS: Hematocrit 43.4 % (41-53); Hemoglobin 15.2 g/dL (13.5-17.5); Mean Corpuscular HGB Conc 34.9 % (30-36); Mean Corpuscular Hemoglobin 32.8 PG (26-34); Mean Corpuscular Volume 93.9 fL (80-100); Platelet Count 178 X10^3/uL (150-400); Red Blood Cell Count 4.62 X10^6/uL (4.5-5.9); Red Cell Distribution Width 12.9 % (11.6-14.8); White Blood Cell Count 6.4 X10^3/uL (4.5-11.0)
[2022-04-13 14:04] LABS: Alanine Aminotransferase 25 IU/L (<50); Albumin 4.3 g/dL (3.5-5.0); Albumin Globulin Ratio 1.5 (1.0-2.8); Alkaline Phosphatase 130 U/L (38-126); Aspartate Aminotransferase 26 IU/L (17-59); BUN Creatinine Ratio 16.5 (6-22); Bilirubin Total 0.4 mg/dL (0.2-1.3); Blood Urea Nitrogen 18 mg/dL (9-20); Calcium 9.5 mg/dL (8.4-10.2); Carbon Dioxide 21 mmol/L (22-32); Chloride 106 mmol/L (98-107); Cholesterol 136 mg/dL (140-199); Estimated Glomerular Filt Rate > 60 mL/min (>60); Globulin 2.9 g/dL (1.7-4.1); Glucose 118 mg/dL (80-110); HDL Cholesterol 38 mg/dL (40-60); HEMOLYSIS 20 (0-50); LDL Cholesterol Calculated 47 mg/dL (<100); Potassium 4.3 mmol/L (3.4-5.1); Sodium 139 mmol/L (137-145); Total Protein 7.2 g/dL (6.3-8.2); Triglycerides 257 mg/dL (35-150)
[2022-04-13 14:24] LABS: Prostate Specific Antigen 1.08 ng/mL (0.10-4.00)
[2022-04-13 14:29] LABS: TSH w/ Reflex to FT4 1.46 uIU/mL (0.47-4.68)
== END ==
PROVIDERS: PCP Internal Medicine; Referring Provider Internal Medicine; Visit Provider Internal Medicine
DX: E78.2 Mixed hyperlipidemia (principal); I10 Essential (primary) hypertension; N13.8 Other obstructive and reflux uropathy; N40.1 Benign prostatic hyperplasia with lower urinary tract symptoms
CPT/HCPCS: 36415; 80053; 80061; 84153; 84443; 85027

== ENCOUNTER 2022-05-02 12:30 | Outpatient (CLI) | payer OTHER, SELFPAY ==
[2022-05-02] VITALS (7 sets, daily range): BP systolic 113–138; BP diastolic 71–84; PULSE 58–81; RESP 12–18; TEMP 36.4; O2SAT 98–100
--- NOTE | 2022-05-02 12:32 | DI.RAD.S_ITS ---
PROCEDURE: PAIN SI JOINT INJECTION INDICATIONS: JOINT DYSFUNCTION COMPARISON: [facility], , PAIN SI JOINT INJECTION, 09/14/2020, 11:31. FINDINGS: On these intraprocedural images, there is a spinal needle seen overlying the inferior aspect of the right sacroiliac joint. Appropriate position of the tip of the needle was confirmed by injection of a small amount of iodinated contrast. IMPRESSION: Successful sacroiliac joint injection. Dictated by: Bobby Kemp M.D. on 05/02/2022 at 14:24 Approved by: Bobby Kemp M.D. on 05/02/2022 at 14:24
[2022-05-02] MEDS: MIDAZOLAM 2 MG/2 ML VIAL IV (13:35)
[2022-05-02] MEDS: BETAMETHASONE 30 MG/5 ML MDV 12 MG INJ (13:40)
[2022-05-02] MEDS: BUPIVACAINE 0.5% (PF) VIAL 2 ML INJ (13:40)
[2022-05-02] MEDS: IOPAMIDOL 15 ML VIAL 3 ML INJ (13:40)
--- NOTE | 2022-05-02 13:42 | PC.NURSE ---
1335 2mg midazolam was ordered IV for sedation. Upon push of medication, IV infiltrated and medication was outside of the vein. Stopped administration immediately and applied warm cloth to area. Dr Martini aware and then proceeded with procedure. Vital signs stable, please see chart.
--- NOTE | 2022-05-02 13:53 | PM.PROC.IR.1 ---
Date/Time/Diagnoses Date of procedure: 05/02/22 Time of procedure: 13:54 Pre-procedure diagnosis: Sacroiliac joint pain/DJD Post-procedure diagnosis: same Procedure Notes Procedure: Fluoroscopically guided contrast controlled right sacroiliac joint injection Indications: Matty is referred by Dr. Trujillo for treatment of right sacroiliac joint DJD Physician: Ritesh Martini Total Fluoroscopy time (seconds): 16 Total sedation minutes: 0 Complications: none Procedure in detail & Post-procedure care: DESCRIPTION OF PROCEDURE Fluoroscopically guided, contrast controlled right sacroiliac joint injection Following review of allergies and review of potential side effects and complications, including, but not necessarily limited to, infection, allergic reaction, local tissue breakdown, temporary as well as permanent nerve injury, paralysis, stroke and possible , the patient indicated that they understood and agreed to proceed. An informed consent was signed by the patient, witnessed by a nurse, and placed in the patient's chart. Additionally, other treatment options including modalities, medications, and physical therapy were reviewed with the patient. After review of previous anaesthesic history and IV conscious sedation the patient was deemed safe to proceed with today?s procedure with IV conscious sedation as ASA class II designation. Safety time-out was performed to confirm patient ID, procedure to be performed and site of procedure. IV sedation was attempted but IV infiltrated and thus not administered by the RN after DO order, titrated to patient comfort during the course of the procedure while the patient remained responsive to all verbal commands In the prone position following sterile prep and drape of the pelvic region, the hyper lucency on in the inferior aspect of the sacroiliac joint was identified fluoroscopically the skin was anesthetized be a 25 gauge 1 eventual with approximately 2 cc of 1% lidocaine solution. At this point, a 22 gauge 3 in spinal needle was atraumatically introduced and advanced under fluoroscopic guidance into the inferior aspect of the right sacroiliac joint. Following negative aspiration, approximately 0.3cc of Isovue-300 was injected confirming intra-articular placement without vascular uptake. Radiographic data, including multiple fluoroscopic views of the pelvis, reveals a spinal needle in the sacroiliac joint hyper lucent zone. Subsequent view show flow contrast tear superiorly and inferiorly within the joint capsule without vascular intrathecal uptake. At this point a total of 1cc of 0.5% Marcaine was combined with 1cc of 6 mg of betamethasone was injected without incident. The procedure tolerated the procedure well without signs or symptoms of complications prior to transfer to the recovery area continued monitoring without incident. The patient was then transferred to the recovery area with a bur observed for an appropriate time after the injection. The patient reverted a vas score of 8 prior to the procedure and post-procedure vas of 1. POSTOP INSTRUCTIONS The patient was provided with a pain like to continue to record the patient's response to the target specific procedure prior to the patient's follow-up visit with the referring physician. Additionally, specific post injection care instructions and a contact number to our office were provided if concerns arise regarding the possible complications associated with procedure are suspected.
== END 2022-05-02 14:07 | disposition home or self-care (01) ==
PROVIDERS: PCP Internal Medicine; Referring Provider Physical Medicine & Rehabilitation; Visit Provider Physical Medicine & Rehabilitation
DX: M53.3 Sacrococcygeal disorders, not elsewhere classified (principal); M46.1 Sacroiliitis, not elsewhere classified; N40.1 Benign prostatic hyperplasia with lower urinary tract symptoms; N13.8 Other obstructive and reflux uropathy; N39.41 Urge incontinence; R33.9 Retention of urine, unspecified; F11.90 Opioid use, unspecified, uncomplicated; M96.1 Postlaminectomy syndrome, not elsewhere classified
CPT/HCPCS: 27096; 51798; 81002; 99214; J0702; J2250

== ENCOUNTER → 2022-06-01 16:25 | Outpatient (CLI) | payer OTHER, SELFPAY | PROVIDERS: PCP Internal Medicine; Visit Provider Urology | DX: N40.1 Benign prostatic hyperplasia with lower urinary tract symptoms (principal); N13.8 Other obstructive and reflux uropathy; R33.9 Retention of urine, unspecified | CPT/HCPCS: 51702; 51798; 87077; 87086; 87186 ==

== ENCOUNTER → 2022-06-12 13:59 | Outpatient (CLI) | payer OTHER, MEDICARE, SELFPAY ==
[2022-06-12 14:58] LABS: Estimated Glomerular Filt Rate > 60 mL/min (>60)
== END ==
PROVIDERS: Radiology Body Imaging; PCP Internal Medicine; Referring Provider Urology; Visit Provider Urology
DX: R33.9 Retention of urine, unspecified (principal)
CPT/HCPCS: 36415; 82565

== ENCOUNTER → 2022-06-12 14:05 | Outpatient (CLI) | payer OTHER, MEDICARE, SELFPAY ==
--- NOTE | 2022-06-12 14:06 | DI.RAD.S_ITS ---
PROCEDURE: XR CERVICAL SPINE 4V OR 5V INDICATIONS: Left C6 radiculopathy TECHNIQUE: 5 views of the cervical spine acquired. COMPARISON: None. FINDINGS: Bones: No acute fractures or dislocations to the C7 level. Multilevel disc space narrowing degenerative endplate changes are seen. There is multilevel uncovertebral joint and facet hypertrophy. Oblique views are suboptimally positioned, which mildly compromises evaluation. There is at least mild to moderate multilevel neural foraminal narrowing which is most prominent at the C3-4 level on the left and difficult to evaluate on the right. Soft tissues: No prevertebral soft tissue swelling. IMPRESSION: [id number] multilevel spondylosis. If indicated clinically, cervical spine MRI could be performed for further evaluation. Approved by: Tommy Quiroz M.D. on 06/12/2022 at 21:00
--- NOTE | 2022-06-12 14:06 | DI.RAD.S_ITS ---
PROCEDURE: XR LUMBAR SPINE MIN 4V INDICATIONS: Right SI joint djd TECHNIQUE: 5 views of the lumbar spine were acquired, including bilateral oblique views. COMPARISON: [facility], , XR LUMBAR SPINE MIN 4V, 05/19/2020, 13:48. FINDINGS: Bones: 5 nonrib-bearing vertebrae are present. There is mild levoconvex curvature. 2 mm grade 1 anterolisthesis of L4 on L5 is noted. There is 1-2 mm retrolisthesis of L3 on L4. No vertebral body compression fractures. No suspicious bony lesions. Multilevel disc space narrowing and degenerative endplate changes are seen. Facet hypertrophy is most prominent at the L4-5 level. Soft tissues: Overlying bowel gas pattern is normal. No suspicious soft tissue calcifications. Aortic atherosclerotic calcifications are present. Oblique images: No pars defects. IMPRESSION: 1. Moderate multilevel spondylosis and degenerative spondylolisthesis ease. 2. Mild levoconvex curvature again noted. 3. Overall, findings appear minimally progressed when compared to the exam from 05/19/2020. Approved by: Tommy Quiroz M.D. on 06/12/2022 at 21:05
== END ==
PROVIDERS: PCP Internal Medicine; Referring Provider Physical Medicine & Rehabilitation; Visit Provider Physical Medicine & Rehabilitation
DX: M47.22 Other spondylosis with radiculopathy, cervical region (principal); M43.16 Spondylolisthesis, lumbar region; M47.816 Spondylosis without myelopathy or radiculopathy, lumbar region; M53.3 Sacrococcygeal disorders, not elsewhere classified; I70.0 Atherosclerosis of aorta
CPT/HCPCS: 72050; 72110

== ENCOUNTER → 2022-06-14 12:05 | Outpatient (CLI) | payer OTHER, MEDICARE, SELFPAY ==
--- NOTE | 2022-06-14 12:06 | DI.CT.S_ITS ---
PROCEDURE: CT ABDOMEN PELVIS WO/W CON INDICATIONS: Urinary retention TECHNIQUE: Optional 5 mm thick noncontrast images acquired from the diaphragm to the symphysis pubis. After the administration of intravenous contrast, 5 mm thick images acquired from the diaphragm to the symphysis pubis after a 10-minute delay. 2 mm thick coronal and sagittal reformats were then performed of the kidneys and ureters. For radiation dose reduction, the following was used: automated exposure control, adjustment of mA and/or kV according to patient size. COMPARISON: None. FINDINGS: Image quality: Excellent. Lung bases: Lung bases are clear. Heart size is normal. Urinary system: Both kidneys are normal in size, without hydronephrosis. There is a 4 mm calcification in inferior right kidney. No perinephric fat stranding. There is a large 12 cm simple appearing cyst in the inferior pole of the right kidney. There is normal bilateral renal enhancement. Renal calyces appear normal in morphology when filled with contrast. Opacified portions of both ureters demonstrate normal caliber. Bladder wall is thickened. Prostate is enlarged. No calcified bladder stones. Other solid organs: Liver is normal in size and enhancement. Gallbladder is normal . Biliary system is non dilated. Pancreas enhances normally. Spleen is normal in size and enhancement. No adrenal nodules. Peritoneum and bowel: Bowel loops demonstrate normal wall thickness and caliber. Diverticulosis. No diverticulitis. No free fluid or air. Nodes and vessels: No retroperitoneal or mesenteric adenopathy by size criteria. Aorta and inferior vena cava are normal in size. Abdominal wall: No ventral hernias. Pelvis: No pathologic free pelvic fluid. No inguinal adenopathy. Small fat containing inguinal hernias are seen bilaterally. Bones: No suspicious bony lesions. Moderate levoscoliosis. Degenerative changes in lumbar spine. No vertebral body compression fractures. IMPRESSION: 1. There is bladder wall thickening. Differential diagnoses are chronic bladder outlet obstruction, cystitis and uroepithelial neoplasm. Recommend cystoscopy for follow-up evaluation. 2. Enlarged prostate. 3. A 4 mm calcification in the inferior right kidney, either a nonobstructive stone or calcification along the wall of the large renal 12 cm cyst. kidney. 4. Diverticulosis without diverticulitis. Dictated by: Stephanie Ramírez M.D. on 06/14/2022 at 14:08 Approved by: Stephanie Ramírez M.D. on 06/14/2022 at 15:25
== END ==
PROVIDERS: PCP Internal Medicine; Referring Provider Urology; Visit Provider Urology
DX: R33.9 Retention of urine, unspecified (principal); N40.1 Benign prostatic hyperplasia with lower urinary tract symptoms; N13.8 Other obstructive and reflux uropathy; N20.0 Calculus of kidney; N28.1 Cyst of kidney, acquired; K57.90 Diverticulosis of intestine, part unspecified, without perforation or abscess without bleeding; K40.20 Bilateral inguinal hernia, without obstruction or gangrene, not specified as recurrent
CPT/HCPCS: 74178; Q9967

== ENCOUNTER → 2022-06-19 13:40 | Outpatient (CLI) | payer OTHER, MEDICARE, SELFPAY | PROVIDERS: PCP Internal Medicine; Visit Provider Urology | DX: N40.1 Benign prostatic hyperplasia with lower urinary tract symptoms (principal); N13.8 Other obstructive and reflux uropathy; R33.9 Retention of urine, unspecified; N28.1 Cyst of kidney, acquired; Z87.898 Personal history of other specified conditions | CPT/HCPCS: 51798; 81002; 87077; 87086; 87186; 99215 ==

== ENCOUNTER → 2022-10-17 10:47 | Outpatient (CLI) | payer MEDICARE, OTHER, SELFPAY ==
--- NOTE | 2022-10-17 10:49 | DI.US.S_ITS ---
PROCEDURE: US RENAL COMPLETE INDICATIONS: Follow-up renal cyst TECHNIQUE: Real-time scanning was performed of the kidneys and bladder, with image documentation. COMPARISON: [facility], CT, CT ABDOMEN PELVIS WO/W CON, 06/14/2022, 12:18. FINDINGS: Kidneys: Right kidney measures 19.6 cm long; left kidney measures 11.6 cm long. Right renal cortical thickness is 2.1 cm; left renal cortical thickness is 1.6 cm. Renal cortical echotexture is normal. No hydronephrosis or nephrolithiasis. (The previously seen 4 mm stone that was seen by CT within the right kidney is not seen on the current study. No suspicious solid mass lesions. There is a large simple cyst at the inferior pole of the right kidney that measures up to 13 cm. Bladder: Pre-void bladder volume is 585 mL. Post-catheterization residual is 0 mL. Pre-void images demonstrate no intraluminal masses or stones. On pre-void images, both ureteral jets are noted with color Doppler interrogation. (Of note, ureteral jets may not be detectable in up to 25% of cases due to insufficient differences in specific gravity between ureteral and bladder urine). Miscellaneous: No free pelvic fluid. IMPRESSION: Simple appearing right renal cyst, 13 cm. Nonvisualization of the previously seen right renal stone. Dictated by: Bobby Kemp M.D. on 10/17/2022 at 13:17 Approved by: Bobby Kemp M.D. on 10/17/2022 at 13:19
== END ==
PROVIDERS: PCP Internal Medicine; Referring Provider Urology; Visit Provider Urology
DX: N28.1 Cyst of kidney, acquired (principal)
CPT/HCPCS: 76770

== ENCOUNTER → 2022-10-18 08:37 | Outpatient (CLI) | payer MEDICARE, OTHER, SELFPAY | PROVIDERS: PCP Internal Medicine; Visit Provider Urology | DX: N31.9 Neuromuscular dysfunction of bladder, unspecified (principal); N40.1 Benign prostatic hyperplasia with lower urinary tract symptoms; R33.9 Retention of urine, unspecified; N13.8 Other obstructive and reflux uropathy; N28.1 Cyst of kidney, acquired; Z78.9 Other specified health status | CPT/HCPCS: 51798; 81002; 87077; 87086; 87186; 99214 ==

== ENCOUNTER 2022-11-16 08:52 | Outpatient (CLI) | payer MEDICARE, OTHER, SELFPAY ==
[2022-11-16] VITALS (8 sets, daily range): BP systolic 122–167; BP diastolic 69–105; PULSE 63–72; RESP 12–16; TEMP 36.8; O2SAT 95–99
--- NOTE | 2022-11-16 08:53 | DI.RAD.S_ITS ---
PROCEDURE: PAIN C/T INTERLAMINAR INJECT INDICATIONS: SPINAL STENOSIS COMPARISON: [facility], CR, XR CERVICAL SPINE 4V OR 5V, 06/12/2022, 14:42. FINDINGS: Fluoroscopic spot filming was performed to verify placement of a spinal needle at the C6-C7 level, as labeled on the films. Appropriate location of the needle tip was confirmed by injection of iodinated contrast. IMPRESSION: No significant intraprocedural abnormality. Dictated by: Bobby Kemp M.D. on 11/16/2022 at 11:02 Approved by: Bobby Kemp M.D. on 11/16/2022 at 11:03
[2022-11-16] MEDS: MIDAZOLAM 2 MG/2 ML VIAL IV (09:40)
[2022-11-16] MEDS: DEXAMETHASONE 10 MG/ML VIAL 30 MG INJ (09:44)
[2022-11-16] MEDS: IOPAMIDOL 15 ML VIAL 3 ML INJ (09:44)
[2022-11-16] MEDS: BUPIVACAINE 0.25% (PF) VIAL 2 ML INJ (09:45)
--- NOTE | 2022-11-16 10:01 | P.PCN_ITS ---
Date/Time/Diagnoses Date of procedure: 11/16/22 Time of procedure: 10:01 Pre-procedure diagnosis: 1. CERVICAL STENOSIS, 2. CERVICAL HNP WITH UPPER EXTREMITY RADICULAR FEATURES Post-procedure diagnosis: same Procedure Notes Procedure: 1. FLUORSCOPICALLY GUIDED CONTRAST CONTROLLED INTERLAMINAR EPIDURAL STEROID INJECTION - C6/7 TL PAL Indications: Matty is referred by Dr. Trujillo for treatment of Cervical HNP with Upper Extremity Paresthesias. Physician: Ritesh Martini Total Fluoroscopy time (seconds): 28 Total sedation minutes: 15 Complications: none Procedure in detail & Post-procedure care: FINDINGS Cervical Stenosis due to disc deterioration and nerve root irritation and nerve root irritation DESCRIPTION OF PROCEDURE Fluoroscopically guided, contrast-controlled C6/7 translaminar epidural steroid injection with conscious sedation. Following review of allergy and review of potential side effects and complications, including, but not necessarily limited to, infection, allergic reaction, local tissue breakdown, temporary as well as permanent nerve injury, stroke, paralysis, and possible , the patient indicated that patient understood and agreed to proceed. An informed consent document was signed by the patient, witnessed by a nurse, and placed in the patient's chart. Additionally, other treatment options including modalities, medications, and physical therapy were reviewed with the patient. After review of previous anaesthesic history and IV conscious sedation the patient was deemed safe to proceed with today?s procedure with IV conscious sedation as ASA class II designation. Safety time-out was performed to confirm patient ID, procedure to be performed and site of procedure. IV sedation was accomplished with a combination of 2mg of Versed administered by the RN after DO order, titrated to patient comfort during the course of the procedure while the patient remained responsive to all verbal commands. In the prone position, following sterile prep and drape of the cervical region, the C6/7 translaminar space was identified fluoroscopically. The skin was anesthetized via a 25-gauge 1.5-inch needle with 1% lidocaine solution. At this point, a 25-gauge, 2.5-inch short bevel spinal needle was atraumatically introduced and advanced under fluoroscopic guidance into epidural space at the C6/7 translaminar space. Depth was confirmed on lateral view. Radiological data, including multiple fluoroscopic views of the cervical spine, reveal a spinal needle at the C6/7 translaminar space. Lateral views then show placement of the needle in the epidural space. Subsequent views show contrast material flowing superiorly and inferiorly in the epidural space. DSA fluoroscopy with live contrast injection, once again, confirmed no vascular or intrathecal uptake. At this point, using loss of resistance technique with saline and air, the epidural space was entered. Following negative aspiration, injection of approximately 1.5 cc of Isovue-200 with live fluoroscopy in the AP view confirmed epidural flow in the epidural space without vascular or intrathecal uptake observed. Subsequently, a test dose of 1 cc of 1% lidocaine solution was injected and patient was observed for two minutes without signs or symptoms of complications, including abdominal pain, shortness of breath, bilateral upper or lower extremity weakness, nausea and vomiting, prior to steroid injection. At this point, 3cc or 30mg of dexamethasone was then injected without incident. The patient tolerated the procedure well without signs or symptoms of complica tions prior to being transferred to the recovery area for further monitoring, The patient was then transferred to the recovery area where they were observed for an appropriate period of time after the injection. The patient reported a VAS score of 7 prior to the procedure and a post-procedure VAS of 1. POST OP INSTRUCTIONS The patient was provided a Pain Log to continue to record their response to the target-specific procedure prior to follow-up visit with the referring provider. Additionally, specific post-injection care instructions and a contact number to our office were provided if concerns arise regarding possible complications associated with the procedure are suspected.
== END 2022-11-16 10:12 | disposition home or self-care (01) ==
PROVIDERS: PCP Internal Medicine; Referring Provider Physical Medicine & Rehabilitation; Visit Provider Physical Medicine & Rehabilitation
DX: M48.02 Spinal stenosis, cervical region (principal); M50.123 Cervical disc disorder at C6-C7 level with radiculopathy
CPT/HCPCS: 62321; 99152; J1100; J2250; J3490

== ENCOUNTER → 2022-12-02 11:57 | Outpatient (CLI) | payer MEDICARE, OTHER, SELFPAY | PROVIDERS: PCP Internal Medicine; Referring Provider Internal Medicine; Visit Provider Internal Medicine | DX: R19.7 Diarrhea, unspecified (principal) | CPT/HCPCS: 87493 ==

== ENCOUNTER → 2023-01-29 08:48 | Outpatient (CLI) | payer MEDICARE, OTHER, SELFPAY ==
--- NOTE | 2023-01-29 08:49 | DI.US.S_ITS ---
PROCEDURE: US RENAL COMPLETE INDICATIONS: Follow-up renal cyst TECHNIQUE: Real-time scanning was performed of the kidneys and bladder, with image documentation. COMPARISON: [facility], , US RENAL COMPLETE, 10/17/2022, 11:01. FINDINGS: Kidneys: Kidneys are normal in size. Right kidney measures 19.5 cm long; left kidney measures 11.9 cm long. Right renal cortical thickness is 1.8 cm; left renal cortical thickness is 2.0 cm. Renal cortical echotexture is normal. No hydronephrosis or nephrolithiasis. No suspicious solid mass lesions. There is a simple right renal cyst which measures 11.5 x 9.2 x 12.6 cm and previously measured 11.6 x 10.5 x 13.0 cm Bladder: Pre-void bladder volume is 138 mL. Post-void residual is 0 mL after catheterization. Pre-void images demonstrate no intraluminal masses or stones. On pre-void images, neither ureteral jets are noted with color Doppler interrogation. (Of note, ureteral jets may not be detectable in up to 25% of cases due to insufficient differences in specific gravity between ureteral and bladder urine). Miscellaneous: No free pelvic fluid. IMPRESSION: 1. Stable simple renal cyst. Dictated by: Cristy Elizabeth M.D. on 01/29/2023 at 11:55 Approved by: Cristy Elizabeth M.D. on 01/29/2023 at 11:57
== END ==
PROVIDERS: PCP Internal Medicine; Referring Provider Urology; Visit Provider Urology
DX: N28.1 Cyst of kidney, acquired (principal)
CPT/HCPCS: 76770

== ENCOUNTER → 2023-02-01 10:52 | Outpatient (CLI) | payer MEDICARE, OTHER, SELFPAY | PROVIDERS: PCP Internal Medicine; Visit Provider Urology | DX: N31.2 Flaccid neuropathic bladder, not elsewhere classified (principal); N31.9 Neuromuscular dysfunction of bladder, unspecified; N28.1 Cyst of kidney, acquired; N52.9 Male erectile dysfunction, unspecified; Z78.9 Other specified health status | CPT/HCPCS: 81002; 87077; 87086; 87186; 99214 ==

== ENCOUNTER → 2023-02-07 13:43 | Outpatient (CLI) | payer MEDICARE, OTHER, SELFPAY ==
--- NOTE | 2023-02-07 13:44 | DI.MRI.S_ITS ---
PROCEDURE: MR CERVICAL SPINE WO CON INDICATIONS: LEFT C6 RADICULOPATHY TECHNIQUE: Noncontrast sagittal T1 spin echo and T2 fast spin echo, sagittal STIR, foraminal oblique sagittal T2 fast spin echo, and axial gradient echo or T2 fast spin echo through the cervical spine. COMPARISON: None. FINDINGS: Image quality: Excellent. Alignment and Curvature: There is normal bony alignment. Bone Marrow: Marrow demonstrates normal overall signal. Spinal Cord: Visualized spinal cord has normal size and signal. No cerebellar tonsillar herniation. Paraspinous Soft Tissues: No paravertebral masses. Prevertebral soft tissues are normal in thickness. C2-C3: Disc desiccation. No central canal stenosis. Facet and uncovertebral arthropathy. Moderate right neural foraminal stenosis. No left neural foraminal stenosis. C3-C4: Disc desiccation and small posterior disc osteophyte complex. Mild central canal stenosis. Facet and uncovertebral arthropathy. Severe bilateral neural foraminal stenosis. C4-C5: Disc desiccation with small posterior disc osteophyte complex. No central canal stenosis. Facet and uncovertebral arthropathy. Severe right and moderate left neural foraminal stenosis. C5-C6: Disc desiccation height loss with small posterior disc osteophyte complex abutting the ventral cord. Mild central canal stenosis. Facet and uncovertebral arthropathy. Severe bilateral neural foraminal stenosis. C6-C7: Disc desiccation height loss with posterior disc osteophyte complex abutting the ventral cord. Mild central canal stenosis. Facet and uncovertebral arthropathy. Severe bilateral neural foraminal stenosis. C7-T1: Disc desiccation and posterior disc osteophyte complex abutting the ventral cord. Mild central canal stenosis. Facet uncovertebral arthropathy. No neural foraminal stenosis. IMPRESSION: 1. Multilevel degenerative changes of the cervical spine as described above. 2. Mild multilevel central canal stenosis. 3. Multilevel severe neural foraminal narrowing as described above. Dictated by: Oumar Pradhan M.D. on 02/07/2023 at 16:13 Approved by: Oumar Pradhan M.D. on 02/07/2023 at 16:19
== END ==
PROVIDERS: PCP Internal Medicine; Referring Provider Physical Medicine & Rehabilitation; Visit Provider Physical Medicine & Rehabilitation
DX: M47.22 Other spondylosis with radiculopathy, cervical region (principal); M48.02 Spinal stenosis, cervical region
CPT/HCPCS: 72141

== ENCOUNTER → 2023-04-02 09:48 | Outpatient (CLI) | payer MEDICARE, OTHER, SELFPAY ==
--- NOTE | 2023-04-02 09:50 | DI.US.S_ITS ---
PROCEDURE: US SOFT TISSUE HEAD AND NECK INDICATIONS: LUMP ON LEFT SIDE OF NECK TECHNIQUE: Real-time scanning was performed of the neck region of interest, with image documentation. COMPARISON: None. FINDINGS: Targeted ultrasound of the left neck demonstrates a normal appearing left cervical chain lymph node measuring 0.7 x 0.3 x 0.5 centimeters. This has a normal reniform shape and fatty hilum, and corresponds to the patient's palpable abnormality. IMPRESSION: Normal cervical chain lymph node in the palpable region of concern. Dictated by: Miko Ordonez M.D. on 04/02/2023 at 10:15 Approved by: Miko Ordonez M.D. on 04/02/2023 at 10:16
== END ==
PROVIDERS: PCP Internal Medicine; Referring Provider Nurse Practitioner Family; Visit Provider Nurse Practitioner Family
DX: R22.1 Localized swelling, mass and lump, neck (principal)
CPT/HCPCS: 76536

== ENCOUNTER 2023-04-24 08:41 | Outpatient (CLI) | payer MEDICARE, OTHER, SELFPAY ==
[2023-04-24] VITALS (9 sets, daily range): BP systolic 103–149; BP diastolic 71–98; PULSE 66–80; RESP 13–20; TEMP 36.3; O2SAT 94–97
--- NOTE | 2023-04-24 09:15 | DI.RAD.S_ITS ---
PROCEDURE: PAIN C/T FACET INJ/BLK 1ST L INDICATIONS: SPINAL STENOSIS COMPARISON: [facility], MR, MR CERVICAL SPINE WO CON, 02/07/2023, 13:55. FINDINGS: Fluoroscopic spot filming was performed to verify placement of spinal needles on the left at the C3, C4, and C5 levels, as labeled on the films. Appropriate location of the needle tips was confirmed by injection of iodinated contrast. IMPRESSION: Intraprocedural examination demonstrating appropriate positions of the needles. Dictated by: Bobby Kemp M.D. on 04/24/2023 at 13:49 Approved by: Bobby Kemp M.D. on 04/24/2023 at 13:49
[2023-04-24] MEDS: MIDAZOLAM 2 MG/2 ML VIAL IV (09:32)
[2023-04-24] MEDS: BUPIVACAINE 0.5% (PF) 10 ML VIAL 5 ML INJ (09:35)
[2023-04-24] MEDS: iopamidoL 15 ML VIAL 3 ML INJ (09:36)
[2023-04-24] MEDS: MIDAZOLAM 2 MG/2 ML VIAL 1 MG IV (09:39)
--- NOTE | 2023-04-24 09:53 | P.PCN_ITS ---
Date/Time/Diagnoses Date of procedure: 04/24/23 Time of procedure: 09:53 Pre-procedure diagnosis: 1. FACET ARTHROPATHY 2. AXIAL NECK PAIN Post-procedure diagnosis: same Procedure Notes Procedure: 1. FLUOROSCOPICALLY GUIDED, CONTRAST-CONTROLLED LEFT C3, C4 and C5 MBB. Indications: Matty is referred by Dr. Trujillo for treatment of Axial Neck Pain Physician: Ritesh Martini Total Fluoroscopy time (seconds): 13 Total sedation minutes: 17 Complications: none Procedure in detail & Post-procedure care: DESCRIPTION OF PROCEDURE Fluoroscopically guided, contrast-controlled left C3, C4 and C5 medial branch blocks. Following review of allergy and review of potential side effects and complications, including, but not necessarily limited to, infection, allergic reaction, local tissue breakdown, stroke, temporary or permanent nerve injury and paralysis, the patient indicated that the patient understood and agreed to proceed. An informed consent document was signed by the patient, witnessed by a nurse, and placed in the patient's chart. Additionally, other treatment options including medications, modalities, and physical therapy were reviewed with the patient. After review of previous anaesthesic history and IV conscious sedation the patient was deemed safe to proceed with today?s procedure with IV conscious sedation as ASA class II designation. Safety time-out was performed to confirm patient ID, procedure to be performed and site of procedure. IV sedation was accomplished with a combination of 3mg of Versed was administered by the RN after DO order, titrated to patient comfort during the course of the procedure while the patient remained responsive to all verbal commands In the prone position, following sterile prep and drape of the cervical spine region, the posterior aspect of the left C3, C4 and C5 medial branchs were identified fluoroscopically. The skin was anesthetized via a 25-gauge 1.5-inch needle with 1% lidocaine solution into the corresponding medial branches. At th is point, a 25-gauge 2.5-inch spinal needle was atraumatically introduced and advanced under fluoroscopic guidance into the corresponding locations. Following negative aspiration, injections of approximately 0.1cc of Isovue 200 confirmed placement without vascular uptake. At this point, a total of 0.5cc of 0.25% bupivicaine solution was injected without complication into each of the corresponding medial branches. The procedure tolerated the procedure well without signs or symptoms of complications prior to transfer to the recovery area continued monitoring without incident. The patient was then transferred to the recovery area where they were observed for an appropriate period of time after the injection. The patient reported a VAS score of 8 prior to the procedure and a post- procedure VAS of 1. POST OP INSTRUCTIONS They were provided a Pain Log to continue to record their response to the target-specific procedure prior to their follow-up visit with their referring physician. Additionally, specific post-injection care instructions and a contact number to our office were provided if concerns arise regarding possible complications associated with the procedure are suspected.
== END 2023-04-24 10:16 | disposition home or self-care (01) ==
PROVIDERS: PCP Internal Medicine; Referring Provider Physical Medicine & Rehabilitation; Visit Provider Physical Medicine & Rehabilitation
DX: M47.812 Spondylosis without myelopathy or radiculopathy, cervical region (principal)
CPT/HCPCS: 64490; 64491; 99152; J2250

== ENCOUNTER → 2023-05-16 15:16 | Outpatient (CLI) | payer MEDICARE, OTHER, SELFPAY ==
[2023-05-16 17:52] LABS: Alanine Aminotransferase 28 IU/L (<50); Albumin 4.5 g/dL (3.5-5.0); Albumin Globulin Ratio 1.7 (1.0-2.8); Alkaline Phosphatase 115 U/L (38-126); Aspartate Aminotransferase 28 IU/L (17-59); BUN Creatinine Ratio 15.6 (6-22); Bilirubin Total 0.6 mg/dL (0.2-1.3); Blood Urea Nitrogen 19 mg/dL (9-20); Carbon Dioxide 25 mmol/L (22-32); Chloride 105 mmol/L (98-107); Cholesterol 145 mg/dL (140-199); Estimated Glomerular Filt Rate > 60 mL/min (>60); Globulin 2.7 g/dL (1.7-4.1); Glucose 113 mg/dL (80-110); HDL Cholesterol 40 mg/dL (40-60); HEMOLYSIS 15 (0-50); LDL Cholesterol Calculated 29 mg/dL (<100); Potassium 4.8 mmol/L (3.4-5.1); Sodium 139 mmol/L (137-145); Total Protein 7.2 g/dL (6.3-8.2); Triglycerides 381 mg/dL (35-150)
[2023-05-16 18:18] LABS: Prostate Specific Antigen 0.844 ng/mL (0.10-4.00)
== END ==
PROVIDERS: PCP Internal Medicine; Referring Provider Internal Medicine; Visit Provider Internal Medicine
DX: E78.2 Mixed hyperlipidemia (principal); N40.1 Benign prostatic hyperplasia with lower urinary tract symptoms; I10 Essential (primary) hypertension; N13.8 Other obstructive and reflux uropathy
CPT/HCPCS: 36415; 80053; 80061; 84153

== ENCOUNTER → 2023-05-29 14:51 | Outpatient (CLI) | payer MEDICARE, OTHER, SELFPAY ==
--- NOTE | 2023-05-29 15:02 | DI.CT.S_ITS ---
PROCEDURE: CT LUNG LOW DOSE SCREENING INDICATIONS: History of tobacco TECHNIQUE: Noncontrast 2.0-2.5 mm thick sections acquired from the pulmonary apices to the posterior costophrenic angles. 7 mm thick axial MIP, and 5 mm coronal and sagittal reformats were then acquired. For radiation dose reduction, the following was used: automated exposure control, adjustment of mA and/or kV according to patient size. COMPARISON: [facility], CT, CT LOW DOSE LUNG CA SCREENING, 12/10/2021, 10:20. FINDINGS: Image quality: Diagnostic. Lower Neck: No enlarged lymph nodes. Thyroid: No thyroid nodules which require sonographic follow up, per consensus guidelines. Axillae: No enlarged lymph nodes. Chest Wall: Unremarkable. There is gynecomastia. Bones: Unremarkable. Lungs and Pleura: No pneumothorax or pleural effusions. No consolidation or suspicious nodules. There is a 3 mm subpleural nodule in the posterior left upper (series 3, image 95), unchanged. A 2 mm nodule in the right middle lobe is also stable (series 3, image 176. There is a tiny calcified nodule in the right middle lobe, compatible with an old granuloma. Heart: Heart size is normal. No pericardial effusion. Mild coronary artery calcification. Thoracic Vessels: The aorta and pulmonary arteries demonstrate normal size. Mediastinum and Tresa: No enlarged lymph nodes. Esophagus: No wall thickening. Small hiatal hernia. Upper Abdomen: Visualized upper abdomen solid organs and bowel loops appear normal. IMPRESSION: 1. Stable small lung nodulee. LUNG-RADS 2; recommend annual screening lung CT in 12 months. 2. Coronary artery atherosclerosis. 3. Gynecomastia. Dictated by: Stephanie Ramírez M.D. on 05/29/2023 at 16:21 Approved by: Stephanie Ramírez M.D. on 05/29/2023 at 16:28
== END ==
PROVIDERS: PCP Internal Medicine; Referring Provider Internal Medicine; Visit Provider Internal Medicine
DX: Z87.891 Personal history of nicotine dependence (principal); Z12.2 Encounter for screening for malignant neoplasm of respiratory organs; R91.8 Other nonspecific abnormal finding of lung field; I25.10 Atherosclerotic heart disease of native coronary artery without angina pectoris; N62 Hypertrophy of breast
CPT/HCPCS: 71271

== ENCOUNTER → 2023-07-27 09:45 | Outpatient (CLI) | payer MEDICARE, OTHER, SELFPAY ==
--- NOTE | 2023-07-27 09:46 | DI.US.S_ITS ---
PROCEDURE: US RENAL COMPLETE INDICATIONS: Right renal cyst TECHNIQUE: Real-time scanning was performed of the kidneys and bladder, with image documentation. COMPARISON: [facility], , US RENAL COMPLETE, 01/29/2023, 8:54. FINDINGS: Kidneys: Right kidney measures 19 cm. Left kidney measures 11 cm. No hydronephrosis bilaterally. No nephrolithiasis is identified. No cortical thinning identified. A right inferior cyst is slightly increased in size measuring 12.6 x 11.8 x 9.8 cm. No obvious solid component is seen on ultrasound. Bladder: Volume is 99 cc. Prostate is 4.4 x 4.5 cm. Did not evaluate postvoid volume. Miscellaneous: No free pelvic fluid. IMPRESSION: Right inferior renal cyst is slightly increased in size measuring 12.6 x 11.8 cm. No soft tissue/solid component identifiable on ultrasound. No hydronephrosis. Dictated by: Valdemar Lagos M.D. on 07/27/2023 at 13:11 Approved by: Valdemar Lagos M.D. on 07/27/2023 at 13:13
== END ==
PROVIDERS: PCP Internal Medicine; Referring Provider Urology; Visit Provider Urology
DX: N28.1 Cyst of kidney, acquired (principal)
CPT/HCPCS: 76770

== ENCOUNTER → 2023-10-08 07:04 | Outpatient (CLI) | payer MEDICARE, OTHER, SELFPAY ==
--- NOTE | 2023-10-08 07:06 | DI.RAD.S_ITS ---
PROCEDURE: XR SHOULDER LT MIN 2V INDICATIONS: left shoulder pain TECHNIQUE: 3 views of the shoulder were acquired. COMPARISON: None. FINDINGS: Bones: No fractures or dislocations. Mild acromioclavicular and glenohumeral joint degeneration. No suspicious bony lesions. Visualized ribs appear intact. Soft tissues: No suspicious soft tissue calcifications. IMPRESSION: No acute bony abnormality. If clinical symptoms persist or clinical suspicion for pathology is high, a repeat examination in 7-10 days, or advanced imaging such as CT or MRI is suggested for further evaluation. Dictated by: Stephanie Ramírez M.D. on 10/08/2023 at 8:06 Approved by: Stephanie Ramírez M.D. on 10/08/2023 at 8:07
== END ==
PROVIDERS: PCP Internal Medicine; Referring Provider Physical Medicine & Rehabilitation; Visit Provider Physical Medicine & Rehabilitation
DX: M15.9 Polyosteoarthritis, unspecified (principal)
CPT/HCPCS: 73030

== ENCOUNTER → 2023-11-15 07:21 | Outpatient (CLI) | payer MEDICARE, OTHER, SELFPAY ==
[2023-11-15 08:40] LABS: BUN Creatinine Ratio 17.6 (6-22); Blood Urea Nitrogen 18 mg/dL (9-20); Calcium 9.6 mg/dL (8.4-10.2); Carbon Dioxide 24 mmol/L (22-32); Chloride 111 mmol/L (98-107); Estimated Glomerular Filt Rate > 60 mL/min (>60); Glucose 149 mg/dL (80-110); HEMOLYSIS < 15 (0-50); Potassium 4.1 mmol/L (3.4-5.1); Sodium 142 mmol/L (137-145)
[2023-11-15 08:56] LABS: Hemoglobin A1C% w Est Avg Glu 6.4 % (4.0-6.0)
== END ==
LOC: LAB 07:22
PROVIDERS: PCP Internal Medicine; Referring Provider Internal Medicine; Visit Provider Internal Medicine
DX: R73.01 Impaired fasting glucose (principal); I10 Essential (primary) hypertension
CPT/HCPCS: 36415; 80048; 83036

== ENCOUNTER → 2023-11-17 08:18 | Outpatient (CLI) | payer MEDICARE, OTHER, SELFPAY ==
[2023-11-17 10:22] LABS: Testosterone 223 ng/dL (71.8-623)
== END ==
PROVIDERS: PCP Internal Medicine; Referring Provider Urology; Visit Provider Urology
DX: N52.9 Male erectile dysfunction, unspecified (principal)
CPT/HCPCS: 36415; 84403

== ENCOUNTER → 2023-11-23 06:56 | Outpatient (CLI) | payer MEDICARE, OTHER, SELFPAY ==
[2023-11-28 18:36] LABS: BUN Creatinine Ratio 18.8 (6-22); Blood Urea Nitrogen 22 mg/dL (9-20); Calcium 9.9 mg/dL (8.4-10.2); Carbon Dioxide 23 mmol/L (22-32); Chloride 111 mmol/L (98-107); Estimated Glomerular Filt Rate > 60 mL/min (>60); Glucose 138 mg/dL (80-110); HEMOLYSIS 17 (0-50); Potassium 4.2 mmol/L (3.4-5.1); Sodium 139 mmol/L (137-145)
== END ==
PROVIDERS: PCP Internal Medicine; Referring Provider Urology; Visit Provider Urology
DX: R73.01 Impaired fasting glucose (principal)
CPT/HCPCS: 80048

== ENCOUNTER → 2023-11-28 06:56 | Outpatient (CLI) | payer MEDICARE, OTHER, SELFPAY ==
[2023-11-28 08:52] LABS: Testosterone 262 ng/dL (71.8-623)
== END ==
PROVIDERS: PCP Internal Medicine; Referring Provider Urology; Visit Provider Urology
DX: R79.89 Other specified abnormal findings of blood chemistry (principal)
CPT/HCPCS: 36415; 84403

== ENCOUNTER → 2023-11-29 08:15 | Outpatient (CLI) | payer MEDICARE, OTHER, SELFPAY ==
--- NOTE | 2023-11-29 08:16 | DI.US.S_ITS ---
PROCEDURE: US RENAL COMPLETE INDICATIONS: Cyst of kidney TECHNIQUE: Real-time scanning was performed of the kidneys and bladder, with image documentation. COMPARISON: CT, CT ABDOMEN PELVIS WO/W CON, 06/14/2022, 12:18. [facility], , RENAL COMPLETE, 07/27/2023, 9:58. FINDINGS: Kidneys: Kidneys are normal in size. Right kidney measures 10.7 cm long; left kidney measures 11.7 cm long. Right renal cortical thickness is 1.5 cm; left renal cortical thickness is 1.5 cm. Renal cortical echotexture is normal. No hydronephrosis or nephrolithiasis. No suspicious solid mass lesions. Simple left renal cyst measuring 11.0 x 10.7 x 12.2 cm. Bladder: Pre-void bladder volume is 92 mL. Post-void residual was not obtained.. Pre-void images demonstrate no intraluminal masses or stones. On pre-void images, only the right ureteral jet is noted with color Doppler interrogation. (Of note, ureteral jets may not be detectable in up to 25% of cases due to insufficient differences in specific gravity between ureteral and bladder urine). Despite bladder being incompletely distended, there is irregular focus of echogenicity in the posterior left aspect measuring approximately 2.3 x 2.0 x 1.8 cm. This is not identified on prior exam. Miscellaneous: No free pelvic fluid. IMPRESSION: Large simple left renal cyst. Focus of echogenicity suspicious for mass lesion in the posterior bladder. Further evaluation with CT IVP and/or cystoscopy is recommended. Dictated by: Yasmine Shea M.D. on 11/29/2023 at 13:31 Approved by: Yasmine Shea M.D. on 11/29/2023 at 13:34
== END ==
PROVIDERS: PCP Internal Medicine; Referring Provider Urology; Visit Provider Urology
DX: N28.1 Cyst of kidney, acquired (principal)
CPT/HCPCS: 76770

== ENCOUNTER → 2023-12-04 13:38 | Outpatient (CLI) | payer MEDICARE, OTHER, SELFPAY | PROVIDERS: PCP Internal Medicine; Visit Provider Urology | DX: R33.9 Retention of urine, unspecified (principal); N40.1 Benign prostatic hyperplasia with lower urinary tract symptoms; N13.8 Other obstructive and reflux uropathy | CPT/HCPCS: 87077; 87086; 87186 ==

== ENCOUNTER → 2024-02-14 10:46 | Outpatient (CLI) | payer MEDICARE, OTHER, SELFPAY | LOC: PHYS 10:47 | PROVIDERS: Family Provider Internal Medicine; PCP Internal Medicine; Referring Provider Physical Medicine & Rehabilitation; Visit Provider Physical Medicine & Rehabilitation | DX: M54.12 Radiculopathy, cervical region (principal) | CPT/HCPCS: 95886; 95909 ==

== ENCOUNTER → 2024-02-25 08:38 | Outpatient (CLI) | payer MEDICARE, OTHER, SELFPAY ==
--- NOTE | 2024-02-25 08:40 | DI.RAD.S_ITS ---
PROCEDURE: XR LUMBAR SPINE MIN 4V INDICATIONS: Low back pain bilateral hip pain TECHNIQUE: 5 views of the lumbar spine were acquired, including bilateral oblique views. COMPARISON: [facility], , XR LUMBAR SPINE MIN 4V, 06/12/2022, 14:42. FINDINGS: Lumbar spine curvature and alignment: Mild lumbar curve appreciated. Bones: There are no osseous abnormalities. Disc spaces: Moderate L2-3 mild L3-4 severe L4-5 mild L5-S1 degenerative disc and facet disease noted. Delete Soft tissues: No soft tissue swelling, calcification or mass. IMPRESSION: Degeneration Dictated by: Riaz Dhillon M.D. on 02/25/2024 at 12:28 Approved by: Riaz Dhillon M.D. on 02/25/2024 at 12:30
== END ==
LOC: RAD 08:39
PROVIDERS: Family Provider Internal Medicine; PCP Internal Medicine; Referring Provider Physical Medicine & Rehabilitation; Visit Provider Physical Medicine & Rehabilitation
DX: M47.816 Spondylosis without myelopathy or radiculopathy, lumbar region (principal); M47.817 Spondylosis without myelopathy or radiculopathy, lumbosacral region; M51.36 Other intervertebral disc degeneration, lumbar region; M51.37 Other intervertebral disc degeneration, lumbosacral region
CPT/HCPCS: 72110

== ENCOUNTER → 2024-03-17 08:16 | Outpatient (CLI) | payer MEDICARE, OTHER, SELFPAY ==
--- NOTE | 2024-03-17 08:18 | DI.US.S_ITS ---
PROCEDURE: US RENAL COMPLETE INDICATIONS: Follow-up renal cyst TECHNIQUE: Real-time scanning was performed of the kidneys and bladder, with image documentation. COMPARISON: [facility], , US RENAL COMPLETE, 11/29/2023, 8:34. FINDINGS: Kidneys: Kidneys are normal in size. Right kidney measures 11.1 cm long; left kidney measures 11.8 cm long. Right renal cortical thickness is 1.5 cm; left renal cortical thickness is 1.5 cm. Renal cortical echotexture is normal. No hydronephrosis or nephrolithiasis. No suspicious solid mass lesions. Similar size of right renal simple cyst measuring 11.8 x 10.8 x 11.6 cm, previously 11.0 x 10.7 x 12.2 cm. Bladder: Pre-void bladder volume is 282 mL. Post-void residual is 0 mL. Again seen questionable mass in the posterior urinary bladder measuring 1.6 x 2.3 x 3.1 cm. On pre-void images, bilateral ureteral jets are noted with color Doppler interrogation. (Of note, ureteral jets may not be detectable in up to 25% of cases due to insufficient differences in specific gravity between ureteral and bladder urine). Miscellaneous: No free pelvic fluid. Incidental note of hepatic steatosis. IMPRESSION: 1. Questionable urinary bladder mass is again seen measuring up to 3.1 cm. Recommend cystoscopy for further evaluation if not previously performed. 2. Stable right renal simple cyst measuring up to 12 cm. 3. Incidental note of hepatic steatosis. Dictated by: Oumar Pradhan M.D. on 03/17/2024 at 14:38 Approved by: Oumar Pradhan M.D. on 03/17/2024 at 15:07
[2024-03-17 11:43] LABS: Prostate Specific Antigen 0.984 ng/mL (0.10-4.00)
== END ==
PROVIDERS: Family Provider Internal Medicine; PCP Internal Medicine; Referring Provider Urology; Visit Provider Urology
DX: N40.1 Benign prostatic hyperplasia with lower urinary tract symptoms (principal); N28.1 Cyst of kidney, acquired; N13.8 Other obstructive and reflux uropathy; K76.0 Fatty (change of) liver, not elsewhere classified
CPT/HCPCS: 36415; 76770; 84153

== ENCOUNTER → 2024-03-26 09:38 | Outpatient (CLI) | payer MEDICARE, OTHER, SELFPAY | PROVIDERS: Family Provider Internal Medicine; PCP Internal Medicine; Visit Provider Urology | DX: N40.1 Benign prostatic hyperplasia with lower urinary tract symptoms (principal); N13.8 Other obstructive and reflux uropathy; R33.9 Retention of urine, unspecified; N31.2 Flaccid neuropathic bladder, not elsewhere classified; N31.9 Neuromuscular dysfunction of bladder, unspecified; N28.1 Cyst of kidney, acquired; R93.89 Abnormal findings on diagnostic imaging of other specified body structures; Z78.9 Other specified health status | CPT/HCPCS: 81002; 87077; 87086; 87186; 99214 ==

== ENCOUNTER → 2024-05-09 09:18 | Outpatient (CLI) | payer MEDICARE, OTHER, SELFPAY ==
--- NOTE | 2024-05-09 09:19 | DI.CT.S_ITS ---
PROCEDURE: CT PELVIS W CON INDICATIONS: Rule out bladder mass suspected by ultrasound, but not present by cystoscopy. Assess for extrinsic mass effect. TECHNIQUE: After the administration of intravenous contrast, 5 mm thick sections acquired from the iliac crests to the symphysis. 5 mm coronal and sagittal reformats were acquired. For radiation dose reduction, the following was used: automated exposure control, adjustment of mA and/or kV according to patient size. COMPARISON: [facility], , US RENAL COMPLETE, 03/17/2024, 8:35. FINDINGS: Image quality: Diagnostic. PELVIS: Peritoneum and Bowel: Bowel loops demonstrate normal wall thickness and caliber. No free fluid or air. Pelvic Organs: No pelvic mass. Bladder: Normal wall thickness, accounting for underdistension. No perivesicular fat stranding. There is mild irregularity at the median eminence of the prostate gland, without visualized evidence of mucosal mass in that area. Pelvic Nodes: No enlarged lymph nodes. Miscellaneous: No inguinal hernias are seen. Bones: No aggressive osseous abnormality. 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 Malignancy or infection is not suspected. Dictated by: Aubrey Bah M.D. on 05/09/2024 at 16:07 Approved by: Aubrey Bah M.D. on 05/09/2024 at 16:12
[2024-05-09 10:24] LABS: Estimated Glomerular Filt Rate > 60 mL/min (>60)
[2024-05-09 11:38] LABS: Prostate Specific Antigen Scrn 3.67 ng/mL (0.1-4.0)
== END ==
PROVIDERS: Radiology Diagnostic Radiology; Family Provider Internal Medicine; PCP Internal Medicine; Referring Provider Urology; Visit Provider Urology
DX: N40.0 Benign prostatic hyperplasia without lower urinary tract symptoms (principal); Z12.5 Encounter for screening for malignant neoplasm of prostate; R93.89 Abnormal findings on diagnostic imaging of other specified body structures
CPT/HCPCS: 72193; 82565; G0103; Q9967

== ENCOUNTER 2024-05-13 09:47 | Outpatient (CLI) | payer MEDICARE, OTHER, SELFPAY ==
[2024-05-13] VITALS (8 sets, daily range): BP systolic 111–130; BP diastolic 74–90; PULSE 74–91; RESP 13–17; TEMP 36.4; O2SAT 95–98
--- NOTE | 2024-05-13 09:48 | DI.RAD.S_ITS ---
PROCEDURE: PAIN L INTERLAMINAR/CAUDAL INJ INDICATIONS: SPINAL STENOSIS COMPARISON: [facility], XA, PAIN L INTERLAMINAR/CAUDAL INJ, 01/11/2021, 9:30. FINDINGS/IMPRESSION: Fluoroscopic spot filming was performed to verify placement of spinal needles at the L4-L5 interlaminar level(s), as labeled on the films. Appropriate location(s) of the needle tip(s) was confirmed by injection of iodinated contrast. Dictated by: Radhika Oconnell MD, PhD on 05/13/2024 at 11:38 Approved by: Radhika Oconnell MD, PhD on 05/13/2024 at 11:38
[2024-05-13] MEDS: MIDAZOLAM 2 MG/2 ML VIAL IV (11:02)
[2024-05-13] MEDS: iopamidoL 15 ML VIAL 3 ML INJ (11:06)
[2024-05-13] MEDS: DEXAMETHASONE 10 MG/ML VIAL INJ (11:07)
[2024-05-13] MEDS: BUPIVACAINE 0.25% (PF) VIAL 2 ML INJ (11:07)
[2024-05-13] MEDS: BETAMETHASONE 30 MG/5 ML MDV 12 MG INJ (11:07)
--- NOTE | 2024-05-13 11:18 | P.PCN_ITS ---
Date/Time/Diagnoses Date of procedure: 05/13/24 Time of procedure: 11:18 Pre-procedure diagnosis: 1. HNP WITH RADICULAR FEATURES, 2. MULTILEVEL CENTRAL STENOSIS, Post-procedure diagnosis: same Procedure Notes Procedure: 1. FLUOROSCOPICALLY GUIDED CONTRAST CONTROLLED INTERLAMINAR EPIDURAL STEROID INJECTION -L4/5 Indications: Matty is referred by Dr. Trujillo for treatment of Bilateral Foraminal Stenosis R>L LE symptoms. Physician: Rietsh Martini Total Fluoroscopy time (seconds): 8 Total sedation minutes: 12 Complications: none Procedure in detail & Post-procedure care: FINDINGS Multilevel Central Spinal Stenosis with Nerve Root Compression DESCRIPTION OF PROCEDURE Fluoroscopically guided, contrast-controlled L4/5 translaminar epidural steroid injection. Following review of allergy and review of potential side effects and complications, including, but not necessarily limited to, infection, allergic reaction, local tissue breakdown, temporary as well as permanent nerve injury, paralysis, stroke and possible , the patient indicated that the patient understood and agreed to proceed. An informed consent document was signed by the patient, witnessed by a nurse, and placed in the patient's chart. Additionally, other treatment options including modalities, medications, and physical therapy were reviewed with the patient. After review of previous anaesthesic history and IV conscious sedation the patient was deemed safe to proceed with today?s procedure with IV conscious sedation as ASA class II designation. Safety time-out was performed to confirm patient ID, procedure to be performed and site of procedure. IV sedation was accomplished with a combination of 2mg of Versed and 50mcg of Fentanyl was administered by the RN after DO order, titrated to patient comfort during the course of the procedure while the patient remained responsive to all verbal commands In the prone position, following sterile prep and drape of the lumbar region, the L4/5 translaminar space was identified fluoroscopically. The skin was anesthetized via a 25-gauge, 1.5inch needle with 1% lidocaine solution. At this point, a 22-gauge short bevel spinal needle was atraumatically introduced and advanced under fluoroscopic guidance into the region of the L4/5 translaminar space. Depth was confirmed on lateral view. Radiological data, including multiple fluoroscopic views of the lumbar spine, reveal a spinal needle at the L4/5 translaminar space. Lateral views then show placement of the needle in the epidural space. Subsequent views show contrast material flowing superiorly and inferiorly in the epidural space. No vascular or intrathecal uptake is observed. At this point, using loss of resistance technique with saline and air, the epidural space was entered. This was confirmed following negative aspiration with injection of approximately 1.5cc of Isovue 200, showing excellent epidural flow without vascular or intrathecal uptake. At this point, 1cc of 1% lidocaine solution combined with 2cc or 10mg of dexamethasone and 6mg betamethasone was injected without incident. The patient tolerated the procedure well without signs or symptoms of complicat ions prior to transfer to the recovery area continued monitoring without incident. The patient was then transferred to the recovery area where they were observed for an appropriate period of time after the injection. The patient reported a VAS score of 6 prior to the procedure and a post- procedure VAS of 0. POST OP INSTRUCTIONS The patient was provided a Pain Log to continue to record their response to the target-specific procedure prior to follow-up visit with their referring physician. Additionally, specific post-injection care instructions and a contact number to our office were provided if concerns arise regarding possible complications associated with the procedure are suspected.
== END 2024-05-13 11:30 | disposition home or self-care (01) ==
PROVIDERS: Family Provider Internal Medicine; PCP Internal Medicine; Referring Provider Physical Medicine & Rehabilitation; Visit Provider Physical Medicine & Rehabilitation
DX: M51.16 Intervertebral disc disorders with radiculopathy, lumbar region (principal); M48.061 Spinal stenosis, lumbar region without neurogenic claudication
CPT/HCPCS: 62323; 99152; J0702; J1100; J2250; J3490

== ENCOUNTER → 2024-05-19 09:04 | Outpatient (CLI) | payer MEDICARE, OTHER, SELFPAY ==
[2024-05-19 10:16] LABS: Hemoglobin A1C% w Est Avg Glu 6.2 % (4.0-6.0)
[2024-05-19 10:43] LABS: Aspartate Aminotransferase 25 IU/L (17-59); BUN Creatinine Ratio 17.2 (6-22); Blood Urea Nitrogen 20 mg/dL (9-20); Calcium 10.6 mg/dL (8.4-10.2); Carbon Dioxide 25 mmol/L (22-32); Chloride 107 mmol/L (98-107); Cholesterol 150 mg/dL (140-199); Estimated Glomerular Filt Rate > 60 mL/min (>60); Glucose 149 mg/dL (80-110); HDL Cholesterol 47 mg/dL (40-60); HEMOLYSIS < 15 (0-50); LDL Cholesterol Calculated 69 mg/dL (<100); Potassium 4.7 mmol/L (3.4-5.1); Sodium 139 mmol/L (137-145); Triglycerides 172 mg/dL (35-150)
== END ==
PROVIDERS: Family Provider Internal Medicine; PCP Internal Medicine; Referring Provider Internal Medicine; Visit Provider Internal Medicine
DX: R73.01 Impaired fasting glucose (principal); I10 Essential (primary) hypertension; E78.2 Mixed hyperlipidemia
CPT/HCPCS: 36415; 80048; 80061; 83036; 84450

== ENCOUNTER → 2024-05-26 09:17 | Outpatient (CLI) | payer MEDICARE, OTHER, SELFPAY ==
--- NOTE | 2024-05-26 09:17 | DI.CT.S_ITS ---
PROCEDURE: CT LUNG LOW DOSE SCREENING INDICATIONS: Nicotine dependence, cigarettes, uncomplicated TECHNIQUE: Noncontrast 2.0-2.5 mm thick sections acquired from the pulmonary apices to the posterior costophrenic angles. 7 mm thick axial MIP, and 5 mm coronal and sagittal reformats were then acquired. For radiation dose reduction, the following was used: automated exposure control, adjustment of mA and/or kV according to patient size. COMPARISON: [facility], CT, CT LUNG LOW DOSE SCREENING, 05/29/2023, 15:11. FINDINGS: Image quality: Diagnostic. Lower Neck: No enlarged lymph nodes. Thyroid: No thyroid nodules which require sonographic follow up, per consensus guidelines. Axillae: No enlarged lymph nodes. Chest Wall: Gynecomastia Bones: Unremarkable. Lungs and Pleura: No pneumothorax or pleural effusions. Stable 2-3 mm peripheral nodules in noted on image 3/40, image 3/91 and image 3/52 Heart: Heart size is normal. No pericardial effusion. Coronary artery vascular calcification Thoracic Vessels: The aorta and pulmonary arteries demonstrate normal size. Mediastinum and Tresa: No enlarged lymph nodes. Esophagus: No wall thickening. No hiatal hernia. Upper Abdomen: Visualized upper abdomen solid organs and bowel loops appear normal. IMPRESSION: Stable benign peripheral nodules, unchanged from the prior LUNG-RADS 2; continued annual screening, if eligible. Approved by: Kumar Jack M.D. on 05/30/2024 at 13:28
== END ==
PROVIDERS: Family Provider Internal Medicine; PCP Internal Medicine; Referring Provider Internal Medicine; Visit Provider Internal Medicine
DX: F17.210 Nicotine dependence, cigarettes, uncomplicated (principal); Z12.2 Encounter for screening for malignant neoplasm of respiratory organs; I25.10 Atherosclerotic heart disease of native coronary artery without angina pectoris; R91.8 Other nonspecific abnormal finding of lung field
CPT/HCPCS: 71271

== ENCOUNTER 2024-05-28 08:33 | Emergency (ER) | payer MEDICARE, OTHER, SELFPAY ==
[2024-05-28 08:35] VITALS: BP 127/86; PULSE 104; RESP 18; TEMP 36.8; O2SAT 97; BMI 26.2
--- NOTE | 2024-05-28 08:41 | ED_ITS ---
HPI - General Adult General Chief complaint: Abdominal Pain Stated complaint: groin px Time Seen by Provider: 05/28/24 08:36 History of Present Illness HPI narrative: 60-year-old gentleman with a history of a renal cyst, chronic back pain for which he takes scheduled narcotics and gabapentin, hypertension with right inguinal pain radiating into the right testicle. Was bothering him last night and this morning was significant enough that he is unable to stand up straight. No fevers cough, chills. No dysuria no constipation no abdominal pain. No palpitations or chest pain Related Data Home Medications Medication Instructions Recorded Confirmed cholecalciferol (vitamin D3) 25 25 mcg PO DAILY 01/26/20 05/19/24 mcg (1,000 unit) capsule coenzyme [id number] 100 mg-100 cap PO 01/26/20 05/19/24 unit capsule multivitamin (Daily Multi-Vitamin 1 tab PO DAILY 01/26/20 05/19/24 tablet) omega-3 fatty acids [Fish Oil] 1 cap PO DAILY 05/16/23 05/19/24 Previous Rx's Medication Instructions Recorded gabapentin 300 mg capsule 300 mg PO TID #270 caps 08/07/23 lisinopril 20 mg tablet 20 mg PO DAILY #90 tabs 08/07/23 trazodone 100 mg tablet 100 mg PO BEDTIME PRN insomnia #90 08/13/23 tabs duloxetine 60 mg capsule,delayed 60 mg PO DAILY #90 caps 09/03/23 release atorvastatin 40 mg tablet 40 mg PO DAILY #90 tabs 09/27/23 tadalafil 5 mg tablet 5 mg PO DAILY #30 tabs 12/04/23 pantoprazole 40 mg tablet,delayed 40 mg PO DAILY #90 tabs 12/10/23 release tadalafil 20 mg tablet 20 mg PO DAILY #90 tabs 02/18/24 tamsulosin 0.4 mg capsule 0.8 mg (2 x 0.4 mg) PO ONCE PM 03/25/24 #180 caps celecoxib 200 mg capsule (Celebrex) 200 mg PO DAILY #90 caps 03/26/24 diazepam 10 mg tablet (Valium) 10 mg PO .COMPLEX #5 tabs 05/06/24 oxycodone-acetaminophen 5 mg-325 1 tab PO TID #90 tabs 05/19/24 mg tablet oxycodone-acetaminophen 5 mg-325 1 tab PO TID #90 tabs 05/19/24 mg tablet oxycodone-acetaminophen 5 mg-325 1 tab PO TID #90 tabs 05/19/24 mg tablet Allergies Allergy/AdvReac Type Severity Reaction Status Date / Time No Known Drug Allergies Allergy Verified 05/19/24 08:22 Review of Systems Review of Systems Narrative: Pertinent positive and negative findings as per HPI Patient History Medical History Abnormal ultrasound CTS (carpal tunnel syndrome) Trigger finger (acquired) Abnormal finding on imaging Rib cage dysfunction Impaired fasting glucose Tobacco use disorder Facet arthropathy, cervical Hypotonic bladder Intermittent self-catheterization of bladder Neurogenic bladder Primary osteoarthritis involving multiple joints Renal cyst, right History of left flank pain Incomplete emptying of bladder Cervical radiculopathy at C6 Cervical radicular pain Chronic insomnia Depression, major, recurrent Chronic, continuous use of opioids GERD without esophagitis Mixed hyperlipidemia Essential hypertension Scoliosis (~2013) Chronic back pain (~2013) Hx of migraine headaches Hx of renal calculi Hx of hemorrhoids Melanoma in situ Balanitis Psoriasis (~1973) Right sided sciatica Male erectile disorder Hx of low back pain Hx of allergic rhinitis BPH w urinary obs/LUTS (~2020) Greater trochanteric bursitis of right hip Sacral dysfunction Sensory peripheral neuropathy Facet arthropathy, lumbar Lumbar radiculopathy Lumbar post-laminectomy syndrome Post laminectomy syndrome Colonoscopy planned Neuropathy Surgical History Anesthesia History of knee surgery (~2013) History of back surgery H/O lithotripsy Family History Grandmother Stroke Mother Arthritis, rheumatoid Heart valve disease Father Diabetes mellitus Heart disease Hyperlipidemia Brother Diabetes mellitus Social History marital status: details: 07/16/2022 (Nickie - adrenal cancer), 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, musician number of children: 4 occupational status: other Smoking Status: Current some day smoker Tobacco: How many years used: 35 alcohol intake: current substance use type: marijuana caffeine: Yes Type(s) of exercise: walking frequency: 3-4 times per week Smoking Status: Current some day smoker Exam Initial Vital Signs Initial Vital Signs: Vital Signs Temperature 98.3 F 05/28/24 08:35 Pulse Rate 104 H 05/28/24 08:35 Respiratory Rate 18 05/28/24 08:35 Blood Pressure 127/86 05/28/24 08:35 Pulse Oximetry 97 05/28/24 08:35 Oxygen Delivery Method Room Air 05/28/24 08:35 General: Alert appropriate in no acute distress Respiratory: Able to speak in full sentences, no obvious respiratory distress Skin: No obvious rashes, warm and dry Abdomen, soft nontender nondistended. No flank pain exam: Normal external genitalia. No tenderness or swelling to either testicle. No erythema to the scrotum or perineum. Very tender over the external inguinal ring with a small palpable mass appreciated that is not mobile and is his source of tenderness. No inguinal adenopathy Neurologic: Grossly intact no obvious asymmetries or abnormalities Psych: appropriate insight and affect, cooperative Course Orders Ordered: ED Orders 05/28/24 09:37 CT abdomen pelvis w con Stat 05/28/24 10:05 Complete Blood Count AUTO DIFF Stat Comprehensive Metabolic Panel Stat Lactate (Lactic Acid) Stat 05/28/24 10:29 Urine Microscopic Stat 05/28/24 11:13 US scrotum Stat Discontinued Medications Hydromorphone HCl (Hydromorphone 1 Mg Inj) 2 mg IM NOW ONE Stop: 05/28/24 08:54 Last Admin: 05/28/24 08:56 Dose: 2 mg Documented By: CROW Vital Signs Vital signs: Vital Signs - 8 hr 05/28/24 08:35 05/28/24 09:46 05/28/24 09:47 Temperature 98.3 F Pulse Rate 104 H 70 Respiratory Rate 18 18 Blood Pressure 127/86 127/83 Pulse Oximetry 97 96 Oxygen Delivery Method Room Air 05/28/24 10:00 05/28/24 10:00 Temperature Pulse Rate 70 Respiratory Rate Blood Pressure 132/88 Pulse Oximetry 94 Oxygen Delivery Method Medical Decision Making Lab Data 05/28/24 10:05 05/28/24 10:05 Labs: Lab Results 05/28/24 Range/Units 10:05 WBC 13.2 H (4.5-11.0) X10^3/uL RBC 4.45 L (4.5-5.9) X10^6/uL Hgb 14.3 (13.5-17.5) g/dL Hct 41.6 (41-53) % MCV 93.5 (80-100) fL MCH 32.1 (26-34) PG MCHC 34.3 (30-36) % RDW 13.1 (11.6-14.8) % Plt Count 158 (150-400) X10^3/uL Neut % (Auto) 76.7 H (50-75) % Lymph % (Auto) 13.3 L (25-40) % [place] % (Auto) 7.8 (3-14) % Eos % (Auto) 1.4 L (2-4) % Baso % (Auto) 0.8 (0-2) % Neut # (Auto) 34255 H (9384-9426) /uL Lymph # (Auto) 1800 (1967-8954) /uL [place] # (Auto) 1000 H (0-900) /uL Eos # (Auto) 200 (0-450) /uL Baso # (Auto) 100 (0-100) /uL Sodium 136 L (137-145) mmol/L Potassium 4.2 (3.4-5.1) mmol/L Chloride 107 (98-107) mmol/L Carbon Dioxide 23 (22-32) mmol/L BUN 18 (9-20) mg/dL Creatinine 1.15 (0.66-1.25) mg/dL Estimated GFR > 60 (>60) mL/min BUN/Creatinine Ratio 15.7 (6-22) Glucose 141 H (80-110) mg/dL Lactate 1.0 (0.7-2.1) mmol/L Calcium 9.4 (8.4-10.2) mg/dL Total Bilirubin 0.6 (0.2-1.3) mg/dL AST 25 (17-59) IU/L ALT 30 (<50) IU/L Alkaline Phosphatase 87 (38-126) U/L Total Protein 6.8 (6.3-8.2) g/dL Albumin 4.1 (3.5-5.0) g/dL Globulin 2.7 (1.7-4.1) g/dL Albumin/Globulin Ratio 1.5 (1.0-2.8) Urine Dip Bedside Urine Glucose Negative Bedside Urine Bilirubin - Negative Bedside Urine Ketone - Negative Urine Specific [place] 1.015 Bedside Urine Occult Blood +/- Bedside Urine pH 6.0 Bedside Urine Protein - Negative Bedside Urine Urobilinogen - Negative Bedside Urine Nitrite + Positive Bedside Urine Leukocytes - Negative Esterase Point of care testing: Urine Dip Bedside Urine Glucose Negative Bedside Urine Bilirubin - Negative Bedside Urine Ketone - Negative Urine Specific [place] 1.015 Bedside Urine Occult Blood +/- Bedside Urine pH 6.0 Bedside Urine Protein - Negative Bedside Urine Urobilinogen - Negative Bedside Urine Nitrite + Positive Bedside Urine Leukocytes - Negative Esterase Imaging Data CT scan - abdomen/pelvis: Radiologist's Impression: PROCEDURE: CT ABDOMEN PELVIS W CON INDICATIONS: incarcerated right inguinal hernia TECHNIQUE: After the administration of intravenous contrast, axial sections acquired from the lung bases to the pubic symphysis. Coronal and sagittal reformats were performed. For radiation dose reduction, the following was used: automated exposure control, adjustment of mA and/or kV according to patient size. COMPARISON: [facility], CT, CT PELVIS W CON, 05/09/2024, 11:43. [facility], CT, CT ABDOMEN PELVIS WO/W CON, 06/14/2022, 12:18. FINDINGS: Image quality: Diagnostic. Lower Chest: No significant findings. ABDOMEN: Liver: No solid mass. Moderate hepatic steatosis is seen. Gallbladder: No radiopaque gallstones or wall thickening. Biliary ducts: No biliary dilation. Pancreas: No ductal dilation. Spleen: Size is within normal limits. Adrenal Glands: No adrenal nodules. Kidneys and Ureters: No hydronephrosis. No solid mass. Simple appearing right renal cyst is again seen unchanged from prior study and measures up to 11.4 x 12.3 cm in size series 2, image 82. No complex renal cystic lesion which requires follow up. Stomach and Bowel: There is no bowel obstruction. No abnormal bowel wall thickening or mesenteric fat stranding. Sigmoid diverticulosis is seen without CT evidence of acute diverticulitis. No abscess collection. Peritoneum: No abnormal intraperitoneal fluid. No free air. Ventral Wall: No significant ventral hernia. Abdominal Nodes: No retroperitoneal or mesenteric adenopathy by size criteria. Vessels: Aorta and inferior vena cava are normal in size. PELVIS: Pelvic Organs: Enlarged prostate gland with mass effect on floor of urinary bladder.. Bladder: No bladder wall thickening, accounting for underdistention. Pelvic Nodes: No enlarged lymph nodes. Miscellaneous: Small to moderate-sized bilateral inguinal hernia is seen containing fat only. There is stranding of the mesenteric fat within right inguinal herniation sac concerning for incarcerated fat. Bones: No aggressive osseous abnormality. IMPRESSION: 1. Small to moderate size bilateral inguinal hernia containing fat only. Suggestion of incarcerated fat within right inguinal herniation sac. 2. No bowel obstruction or abnormal bowel wall thickening. Colonic diverticulosis without CT evidence of acute diverticulitis. No abscess collection. No free fluid or free air. 3. Hepatic steatosis. 4. Large simple appearing right renal cyst. No hydronephrosis or obstructing renal stones. Dictated by: Peter Feliz M.D. on 05/28/2024 at 10:47 MDM Narrative Medical decision making narrative: CC: Right inguinal pain Complicating co-morbidities: Hypertension, chronic back pain, BPH Data collected from: patient Medical records reviewed: Primary care note from May 19, 2024 is reviewed Differential considered: Incarcerated inguinal hernia, testicular torsion, kidney stone, infection including Esther's gangrene Exam documented above, pertinent findings include: Patient is in pain and it can be localized directly to the inguinal canal with small inguinal hernia appreciated. No testicular abnormalities Lab Test results independently reviewed as above. Pertinent findings: CBC shows mild leukocytosis at 13.2 with minimal left shift at 76.7. No anemia Chemistries are reassuring Imaging studies independently reviewed: CT scan shows slightly incarcerated fat containing inguinal hernia right side Consultations: [address] scan for further evaluation, we will talk to him after results available. 1045 in the department in real-time, reviewed CT scan. Waiting official radiology read. Radiology read does suggest small fat only incarcerated hernia likely causing pain the patient is experiencing. Dr. Garcia has examined the patient, explained pain control and outpatient follow up recommendations and patient will be discharged Treatments: 2 mg of IM Dilaudid. Attempted reduction of the right inguinal hernia unsuccessful. Bedside ultrasound does suggest that there is a small amount of bowel in the hernia peristalsis is noted. Patient notes that he has not had a bowel movement today and has not passed any gas neither of which seem particularly unusual for him Re-evaluations: Discussion: 68-year-old gentleman with increasing right inguinal pain, incarcerated fat in his inguinal canal, evaluated in real-time by Dr. Garcia, general surgery. There was no indication for acute surgical intervention at this time. The patient recently had steroid epidural injections and may need additional time before elective inguinal hernia surgery would be appropriate. Patient will follow up with outpatient surgery clinic, at this time there was no indication for advanced imaging or hospitalization. Patient is safe for discharge Discharge Plan Departure Patient Disposition: Home Clinical Impression: Hernia, inguinal, right Instructions: DI for Groin Hernia Activity Restrictions/Additional Instructions: Thank you for coming in today On clinical exam you have a hernia on the right side. We did try to reduce it in the emergency department but I was not successful. CT scan shows that there is fat only in the hernia, no bowel. Using pain medication, ice, elevating your hips as much as possible muscle relaxants can be helpful with pain control. At this point there is no indication for emergent surgical intervention. You will need to follow up with Dr. Reveles, I believe he does do hernia surgeries. Please call his office to see. If he does not, please follow up with our general surgeon office at [phone]. You can continue your scheduled oxycodone use. If you find that you are getting worse or develop any new symptoms, please feel free to return to the emergency department for further evaluation. Prescriptions: No Action lisinopril 20 mg tablet 20 mg PO DAILY Qty: 90 3RF gabapentin 300 mg capsule 300 mg PO TID Qty: 270 3RF trazodone 100 mg tablet 100 mg PO BEDTIME PRN (Reason: insomnia) Qty: 90 3RF duloxetine 60 mg capsule,delayed release(DR/EC) 60 mg PO DAILY Qty: 90 3RF atorvastatin 40 mg tablet 40 mg PO DAILY Qty: 90 3RF pantoprazole 40 mg tablet,delayed release (DR/EC) 40 mg PO DAILY Qty: 90 3RF tadalafil 20 mg tablet 20 mg PO DAILY Qty: 90 0RF tamsulosin 0.4 mg capsule 0.8 mg PO ONCE PM Qty: 180 0RF celecoxib [Celebrex] 200 mg capsule 200 mg PO DAILY Qty: 90 2RF Hold Instructions: Home Medication placed on hold at Doctor's office diazepam [Valium] 10 mg tablet 10 mg PO .COMPLEX MDD 3 tabs Qty: 5 0RF Rx Instructions: 1 to 2 tabs 1hr prior to spinal procedure. May take an additional tab if steroid flare experienced the night after the procedure. omega-3 fatty acids [Fish Oil] 1 cap PO DAILY oxycodone-acetaminophen 5-325 mg tablet 1 tab PO TID Qty: 90 0RF oxycodone-acetaminophen 5-325 mg tablet 1 tab PO TID Qty: 90 0RF oxycodone-acetaminophen 5-325 mg tablet 1 tab PO TID Qty: 90 0RF cholecalciferol (vitamin D3) 25 mcg (1,000 unit) capsule 25 mcg PO DAILY coenzyme [id number] 100-100 mg-unit capsule PO multivitamin [Daily Multi-Vitamin] Tablet 1 tab PO DAILY tadalafil 5 mg tablet 5 mg PO DAILY Qty: 30 12RF Referrals: Conrad Trujillo MD [Primary Care Provider] - Stand Alone Forms: Patient Portal/API/Survey
[2024-05-28] MEDS: HYDROMORPHONE 1 MG INJ 2 MG IM (08:56)
--- NOTE | 2024-05-28 09:37 | DI.CT.S_ITS ---
PROCEDURE: CT ABDOMEN PELVIS W CON INDICATIONS: incarcerated right inguinal hernia TECHNIQUE: After the administration of intravenous contrast, axial sections acquired from the lung bases to the pubic symphysis. Coronal and sagittal reformats were performed. For radiation dose reduction, the following was used: automated exposure control, adjustment of mA and/or kV according to patient size. COMPARISON: [facility], CT, CT PELVIS W CON, 05/09/2024, 11:43. [facility], CT, CT ABDOMEN PELVIS WO/W CON, 06/14/2022, 12:18. FINDINGS: Image quality: Diagnostic. Lower Chest: No significant findings. ABDOMEN: Liver: No solid mass. Moderate hepatic steatosis is seen. Gallbladder: No radiopaque gallstones or wall thickening. Biliary ducts: No biliary dilation. Pancreas: No ductal dilation. Spleen: Size is within normal limits. Adrenal Glands: No adrenal nodules. Kidneys and Ureters: No hydronephrosis. No solid mass. Simple appearing right renal cyst is again seen unchanged from prior study and measures up to 11.4 x 12.3 cm in size series 2, image 82. No complex renal cystic lesion which requires follow up. Stomach and Bowel: There is no bowel obstruction. No abnormal bowel wall thickening or mesenteric fat stranding. Sigmoid diverticulosis is seen without CT evidence of acute diverticulitis. No abscess collection. Peritoneum: No abnormal intraperitoneal fluid. No free air. Ventral Wall: No significant ventral hernia. Abdominal Nodes: No retroperitoneal or mesenteric adenopathy by size criteria. Vessels: Aorta and inferior vena cava are normal in size. PELVIS: Pelvic Organs: Enlarged prostate gland with mass effect on floor of urinary bladder.. Bladder: No bladder wall thickening, accounting for underdistention. Pelvic Nodes: No enlarged lymph nodes. Miscellaneous: Small to moderate-sized bilateral inguinal hernia is seen containing fat only. There is stranding of the mesenteric fat within right inguinal herniation sac concerning for incarcerated fat. Bones: No aggressive osseous abnormality. IMPRESSION: 1. Small to moderate size bilateral inguinal hernia containing fat only. Suggestion of incarcerated fat within right inguinal herniation sac. 2. No bowel obstruction or abnormal bowel wall thickening. Colonic diverticulosis without CT evidence of acute diverticulitis. No abscess collection. No free fluid or free air. 3. Hepatic steatosis. 4. Large simple appearing right renal cyst. No hydronephrosis or obstructing renal stones. Dictated by: Peter Feliz M.D. on 05/28/2024 at 10:47 Approved by: Peter Feliz M.D. on 05/28/2024 at 10:50
[2024-05-28 09:46] VITALS: PULSE 70; RESP 18; O2SAT 96
[2024-05-28 09:47] VITALS: BP 127/83
[2024-05-28 10:00] VITALS: BP 132/88; PULSE 70; O2SAT 94
[2024-05-28 10:16] LABS: Add Manual Diff / Slide Review NO; Basophils Absolute Auto 100 /uL (0-100); Basophils Percent Auto 0.8 % (0-2); Eosinophils Absolute Auto 200 /uL (0-450); Eosinophils Percent Auto 1.4 % (2-4); Hematocrit 41.6 % (41-53); Hemoglobin 14.3 g/dL (13.5-17.5); Lymphocytes Absolute Auto 1800 /uL (1100-4500); Lymphocytes Percent Auto 13.3 % (25-40); Mean Corpuscular HGB Conc 34.3 % (30-36); Mean Corpuscular Hemoglobin 32.1 PG (26-34); Mean Corpuscular Volume 93.5 fL (80-100); Monocytes Absolute Auto 1000 /uL (0-900); Monocytes Percent Auto 7.8 % (3-14); Neutrophils Absolute Auto 10100 /uL (1500-7000); Neutrophils Percent Auto 76.7 % (50-75); Platelet Count 158 X10^3/uL (150-400); Red Blood Cell Count 4.45 X10^6/uL (4.5-5.9); Red Cell Distribution Width 13.1 % (11.6-14.8); White Blood Cell Count 13.2 X10^3/uL (4.5-11.0)
[2024-05-28 10:33] LABS: Alanine Aminotransferase 30 IU/L (<50); Albumin 4.1 g/dL (3.5-5.0); Albumin Globulin Ratio 1.5 (1.0-2.8); Alkaline Phosphatase 87 U/L (38-126); Aspartate Aminotransferase 25 IU/L (17-59); BUN Creatinine Ratio 15.7 (6-22); Bilirubin Total 0.6 mg/dL (0.2-1.3); Blood Urea Nitrogen 18 mg/dL (9-20); Calcium 9.4 mg/dL (8.4-10.2); Carbon Dioxide 23 mmol/L (22-32); Chloride 107 mmol/L (98-107); Estimated Glomerular Filt Rate > 60 mL/min (>60); Globulin 2.7 g/dL (1.7-4.1); Glucose 141 mg/dL (80-110); HEMOLYSIS 17 (0-50); Potassium 4.2 mmol/L (3.4-5.1); Sodium 136 mmol/L (137-145); Total Protein 6.8 g/dL (6.3-8.2)
--- NOTE | 2024-05-28 10:41 | PC.NURSE ---
Patient self caths
[2024-05-28 11:00] VITALS: BP 176/86; PULSE 82; RESP 18; O2SAT 97
--- NOTE | 2024-05-28 11:34 | PM.CN ---
History of Present Illness Consult details Date Patient Seen: 05/28/24 Time Patient Seen: 11:34 Chief complaint: groin px Reason for consult: fat-containing right inguinal hernia Narrative: 68 year old WM with chronic pain, anxiety, neuropathy, on chronic narcotics, given a steroid injection in his back two weeks ago, presents with right groin pain. CT scan shows incarcerated fat, no bowel obstruction. He states that he has a bowel movement each day and does not have narcotic-associated constipation. Meds Home Medications and Allergies Home Medications Medication Instructions Recorded Confirmed Type cholecalciferol (vitamin D3) 25 25 mcg PO DAILY 01/26/20 05/19/24 History mcg (1,000 unit) capsule coenzyme [id number] E 100 mg-100 cap PO 01/26/20 05/19/24 History unit capsule multivitamin (Daily Multi-Vitamin 1 tab PO DAILY 01/26/20 05/19/24 History tablet) omega-3 fatty acids [Fish Oil] 1 cap PO DAILY 05/16/23 05/19/24 History gabapentin 300 mg capsule 300 mg PO TID #270 caps 08/07/23 05/19/24 Rx lisinopril 20 mg tablet 20 mg PO DAILY #90 tabs 08/07/23 05/19/24 Rx trazodone 100 mg tablet 100 mg PO BEDTIME PRN insomnia #90 08/13/23 05/19/24 Rx tabs duloxetine 60 mg capsule,delayed 60 mg PO DAILY #90 caps 09/03/23 05/19/24 Rx release atorvastatin 40 mg tablet 40 mg PO DAILY #90 tabs 09/27/23 05/19/24 Rx tadalafil 5 mg tablet 5 mg PO DAILY #30 tabs 12/04/23 05/19/24 Rx pantoprazole 40 mg tablet,delayed 40 mg PO DAILY #90 tabs 12/10/23 05/19/24 Rx release tadalafil 20 mg tablet 20 mg PO DAILY #90 tabs 02/18/24 05/19/24 Rx tamsulosin 0.4 mg capsule 0.8 mg (2 x 0.4 mg) PO ONCE PM 03/25/24 05/19/24 Rx #180 caps celecoxib 200 mg capsule (Celebrex) 200 mg PO DAILY #90 caps 03/26/24 05/19/24 Rx diazepam 10 mg tablet (Valium) 10 mg PO .COMPLEX #5 tabs 05/06/24 05/19/24 Rx oxycodone-acetaminophen 5 mg-325 1 tab PO TID #90 tabs 05/19/24 05/19/24 Rx mg tablet oxycodone-acetaminophen 5 mg-325 1 tab PO TID #90 tabs 05/19/24 05/19/24 Rx mg tablet oxycodone-acetaminophen 5 mg-325 1 tab PO TID #90 tabs 05/19/24 05/19/24 Rx mg tablet Allergies Allergy/AdvReac Type Severity Reaction Status Date / Time No Known Drug Allergies Allergy Verified 05/19/24 08:22 Review of Systems Review of Systems ROS: Yes All systems reviewed with the patient and are negative except as otherwise documented Exam Vital Signs (past 8 hours): - 05/28/24 08:35 05/28/24 09:46 05/28/24 09:47 Temperature 98.3 F Pulse Rate 104 H 70 Respiratory Rate 18 18 Blood Pressure 127/86 127/83 Pulse Oximetry 97 96 Oxygen Delivery Method Room Air 05/28/24 10:00 05/28/24 10:00 Temperature Pulse Rate 70 Respiratory Rate Blood Pressure 132/88 Pulse Oximetry 94 Oxygen Delivery Method Oxygen Delivery Method Room Air Objective Imaging CT scan - abdomen: My impression: some fat-stranding around the right inguinal hernia, small left inguinal hernia. Normal bowel without obstruction. Labs 05/28/24 10:05 05/28/24 10:05 Labs: Laboratory Results - last 24 hr 05/28/24 10:05 WBC 13.2 H RBC 4.45 L Hgb 14.3 Hct 41.6 MCV 93.5 MCH 32.1 MCHC 34.3 RDW 13.1 Plt Count 158 Neut % (Auto) 76.7 H Lymph % (Auto) 13.3 L [place] % (Auto) 7.8 Eos % (Auto) 1.4 L Baso % (Auto) 0.8 Neut # (Auto) 32389 H Lymph # (Auto) 1800 [place] # (Auto) 1000 H Eos # (Auto) 200 Baso # (Auto) 100 Sodium 136 L Potassium 4.2 Chloride 107 Carbon Dioxide 23 BUN 18 Creatinine 1.15 Estimated GFR > 60 BUN/Creatinine Ratio 15.7 Glucose 141 H Lactate 1.0 Calcium 9.4 Total Bilirubin 0.6 AST 25 ALT 30 Alkaline Phosphatase 87 Total Protein 6.8 Albumin 4.1 Globulin 2.7 Albumin/Globulin Ratio 1.5 [facility] Medical History (Updated 05/28/24 @ 11:37 by Tawanda Garcia MD) Bilateral inguinal hernia Abnormal ultrasound CTS (carpal tunnel syndrome) Trigger finger (acquired) Abnormal finding on imaging Rib cage dysfunction Impaired fasting glucose Tobacco use disorder Facet arthropathy, cervical Hypotonic bladder Intermittent self-catheterization of bladder Neurogenic bladder Primary osteoarthritis involving multiple joints Renal cyst, right History of left flank pain Incomplete emptying of bladder Cervical radiculopathy at C6 Cervical radicular pain Chronic insomnia Depression, major, recurrent Chronic, continuous use of opioids GERD without esophagitis Mixed hyperlipidemia Essential hypertension Scoliosis (~2013) Chronic back pain (~2013) Hx of migraine headaches Hx of renal calculi Hx of hemorrhoids Melanoma in situ Balanitis Psoriasis (~1973) Right sided sciatica Male erectile disorder Hx of low back pain Hx of allergic rhinitis BPH w urinary obs/LUTS (~2020) Greater trochanteric bursitis of right hip Sacral dysfunction Sensory peripheral neuropathy Facet arthropathy, lumbar Lumbar radiculopathy Lumbar post-laminectomy syndrome Post laminectomy syndrome Colonoscopy planned Neuropathy Surgical History Anesthesia History of knee surgery (~2013) History of back surgery H/O lithotripsy Family History Grandmother Stroke Mother Arthritis, rheumatoid Heart valve disease Father Diabetes mellitus Heart disease Hyperlipidemia Brother Diabetes mellitus Social History marital status: details: 07/16/2022 (Nickie - adrenal cancer), 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, musician number of 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 occupational status: other Tobacco & Substance Use Smoking Status: Current some day smoker Tobacco: How many years used: 35 alcohol intake: current substance use type: marijuana Diet and Exercise caffeine: Yes Type(s) of exercise: walking frequency: 3-4 times per week Assessment & Plan Assessment and plan (1) Bilateral inguinal hernia: Qualifiers: Obstruction and gangrene presence: without obstruction or gangrene Recurrence: non-recurrent Qualified Code(s): K40.20 - Bilateral inguinal hernia, without obstruction or gangrene, not specified as recurrent Status: Acute Assessment & Plan narrative: Recommend ice packs to the right groin 20-30 minutes at a time while laying supine if he has pain. Recommend elective surgery at least 6 weeks following steroid injection to reduce chances of poor wound healing and infection. Hgb A1c is elevated, recommend follow-up with primary care doctor. He believes his urologist, Dr. Reveles, performs inguinal hernia repairs. Time-Based Coding :: [TOTAL MINUTES] spent with patient and on the chart (including review of chart, obtaining history, exam, reviewing outside data, placing orders, documenting exam and treatment plan, and counseling patient) on [DATE]. PROFEE Charge Codes Inpatient or Observation consultation: [id number]
[2024-05-28 11:40] VITALS: BP 156/86; PULSE 88; RESP 18; TEMP 36.8; O2SAT 98
[2024-05-28 11:47] LABS: Bacteria Urine Moderate (10-30); Culture Indicated Urine Specimen Cultured; RBC Urine None Seen (0-5/HPF); Squamous Epithelial Cell Urine 0-1 /HPF (0-5/HPF); Urine Volume 10mL (spun); WBC Urine 1-5/HPF (0-5/HPF)
== END 2024-05-28 11:40 | disposition home or self-care (01) ==
PROVIDERS: Emergency Provider Emergency Medicine; Family Provider Internal Medicine; PCP Internal Medicine
DX: K40.00 Bilateral inguinal hernia, with obstruction, without gangrene, not specified as recurrent (principal)
CPT/HCPCS: 36415; 74177; 80053; 81003; 81015; 83605; 85025; 87077; 87086; 87186; 96372; 99284; J1171; Q9967

== ENCOUNTER 2024-06-24 13:20 | Day surgery (SDC) | payer MEDICARE, OTHER, SELFPAY ==
[2024-06-18 10:22] VITALS: BMI 26.7
[2024-06-24] VITALS (10 sets, daily range): BP systolic 116–155; BP diastolic 75–99; PULSE 68–103; RESP 14–19; TEMP 36.4–37.2; O2SAT 93–100; BMI 26.7
[2024-06-24] MEDS: ACETAMINOPHEN IV 1,000 MG/100 ML VIAL 400 MG IV (14:15)
--- NOTE | 2024-06-24 14:23 | PM.PREOP ---
Pre-operative Note COVID-19 COVID-19 status: Not tested Interval Note History & Physical reviewed/Exam performed by Physician: Yes Changes to H&P: No ASA Class (for procedural sedation): II
[2024-06-24] MEDS: CEFAZOLIN 2 GM/100 ML PREMIX 100 ML IV (14:40)
--- NOTE | 2024-06-24 15:20 | SUR.OPER ---
Supine on padded OR bed with pink pad, head on pillow, arms padded and tucked at sides, legs uncrossed, safety belt at thigh, tape over blanket over lower legs .
[2024-06-24] MEDS: BUPIVACAINE 0.5% W/ EPI (PF) 30 ML VIAL INJ (15:32)
[2024-06-24] MEDS: LACTATED RINGERS 1,000 ML 42 ML IV (16:00)
--- NOTE | 2024-06-24 16:43 | P.OP_ITS ---
Operative Date/Time/Diagnoses Date of procedure: 06/24/24 Time of procedure: 16:43 Pre-op diagnosis: Bilateral inguinal hernia Post-op diagnosis: same Procedure & Clinicians Procedure: Laparoscopic bilateral inguinal hernia repair with mesh Same procedure as scheduled: Yes Surgeon: Matty Wild Anesthesia Type: General Operative Notes Procedure in detail: Surgeon: Matty Wild MD The patient was given preoperative antibiotics. The patient was brought to the operating room, placed on the table in the supine position with the arms tucked and general anesthesia was induced. The abdomen was prepped and draped in the usual fashion. A time-out was performed. A 1 cm supraumbilical incision was created and dissection was carried down to the fascia. The fascia was scored transversely with cautery. A Peon clamp was used to pelayo the peritoneum. The Darryn port was placed and the abdomen was insufflated to 15 mmHg. The camera was inserted, there was no evidence of any injury from the entry. 5 mm ports were placed under direct vision in the mid left and mid right abdomen. The patient was positioned in steep Trendelenburg. We started on the right side. We created a bright peritoneal flap. The peritoneum was dissected off the cord structures. There was a primary indirect defect in the shallow direct. A large right Bard mesh was brought in and placed over the defect with the medial edge against Agustin's ligament. We then closed the peritoneal flap with a running 3-0 barbed suture. Next we turned our attention to the left side. The peritoneum was dissected off the left cord structures. There was a suggestion of a direct defect. A large left Bard mesh was brought in and placed over the defect with the medial edge against Agustin's ligament. We then closed the peritoneal flap with a running 3- 0 barbed suture. We took one last look around the abdomen and saw no other abnormalities. The suture was removed and accounted for. The 5 mm ports were removed under direct vision. The abdomen was desufflated. The Darryn port was removed. Additional local was injected into the fascia and the fascial incision was closed with 2 interrupted 0 Vicryl sutures. The skin incisions were closed with 4 Monocryl, Steri-Strips and Band-Aids. EBL: 10 mL Post-operative Condition: stable Disposition: PACU
[2024-06-24] MEDS: HYDROMORPHONE 1 MG INJ IV ×3 (17:06→17:20)
[2024-06-24] MEDS: OXYCODONE IR 5 MG TABLET 10 MG PO (17:19)
[2024-06-24] MEDS: KETOROLAC 30 MG/ML VIAL 15 MG IV (17:22)
--- NOTE | 2024-06-24 17:34 | SUR.PHASEI ---
Sammie ASH called, to bedside to discuss pain managmenet. See new order for lorazepam.
--- NOTE | 2024-06-24 17:39 | SUR.PHASEI ---
Report at bedside from Dr Alberto when patient arrived and order received for IV Toradol.
[2024-06-24] MEDS: LORazepam 2 MG/ML INJ 0.5 MG IV (17:41)
== END 2024-06-24 18:11 | disposition home or self-care (01) ==
PROVIDERS: Family Provider Internal Medicine; PCP Internal Medicine; Referring Provider Surgery; Visit Provider Surgery
PROC: 0YQ64ZZ Repair Left Inguinal Region, Percutaneous Endoscopic Approach (ICD-10-PCS; CPT 49650; principal; 2024-06-24 14:30)
DX: K40.20 Bilateral inguinal hernia, without obstruction or gangrene, not specified as recurrent (principal); I10 Essential (primary) hypertension; E78.2 Mixed hyperlipidemia; Z87.891 Personal history of nicotine dependence
CPT/HCPCS: 49650; J0134; J0690; J1100; J1171; J1885; J2060; J2405; J2704; J3010

== ENCOUNTER → 2024-07-11 13:16 | Outpatient (CLI) | payer MEDICARE, OTHER, SELFPAY ==
--- NOTE | 2024-07-11 13:17 | DI.US.S_ITS ---
PROCEDURE: US RENAL COMPLETE INDICATIONS: renal cyst TECHNIQUE: Real-time scanning was performed of the kidneys and bladder, with image documentation. COMPARISON: Located Within [facility], CT, CT ABDOMEN PELVIS W CON, 05/28/2024, 9:40. Located Within [facility], US, US RENAL COMPLETE, 03/17/2024, 8:35. FINDINGS: Kidneys: Kidneys are normal in size, however right kidney measures enlarged secondary to large cyst. Right kidney measures 21.1 cm long; left kidney measures 12 cm long. Right renal cortical thickness is 1.8 cm; left renal cortical thickness is 0.7 cm. Renal cortical echotexture is normal. No hydronephrosis or nephrolithiasis. No suspicious solid mass lesions. Large right renal cyst measuring 11.8 x 9.5 x 12.4 cm, previously 11.8 x 10.8 x 11.6 cm. Bladder: Pre-void bladder volume is 342 mL. Post-void residual is 0 mL. Pre-void images demonstrate no intraluminal masses or stones. Urinary bladder fold versus diverticulum is noted. On pre-void images, neither ureteral jets are noted with color Doppler interrogation. (Of note, ureteral jets may not be detectable in up to 25% of cases due to insufficient differences in specific gravity between ureteral and bladder urine). Miscellaneous: No free pelvic fluid. Incidental note of hepatic steatosis. IMPRESSION: 1. Similar appearance of large right simple renal cyst measuring 12 cm. 2. No definite bladder mass is identified. Urinary bladder fold versus diverticulum is noted. 3. Incidental note of hepatic steatosis. Dictated by: Oumar Pradhan M.D. on 07/11/2024 at 15:53 Approved by: Oumar Pradhan M.D. on 07/11/2024 at 15:56
== END ==
PROVIDERS: Family Provider Internal Medicine; PCP Internal Medicine; Referring Provider Urology; Visit Provider Urology
DX: N31.9 Neuromuscular dysfunction of bladder, unspecified (principal); N31.2 Flaccid neuropathic bladder, not elsewhere classified; K76.0 Fatty (change of) liver, not elsewhere classified; R93.89 Abnormal findings on diagnostic imaging of other specified body structures; N28.1 Cyst of kidney, acquired; Z78.9 Other specified health status
CPT/HCPCS: 76770

== ENCOUNTER → 2024-08-15 16:58 | Outpatient (CLI) | payer MEDICARE, OTHER, SELFPAY ==
--- NOTE | 2024-08-15 17:00 | DI.RAD.S_ITS ---
PROCEDURE: XR SHOULDER RT MIN 2V INDICATIONS: RIGHT SHOULDER PAIN TECHNIQUE: 3 views of the shoulder were acquired. COMPARISON: [facility], CR, XR SHOULDER LT MIN 2V, 10/08/2023, 7:20. FINDINGS: Bones: No fractures or dislocations. [id number] acromioclavicular joint osteoarthritic changes are seen. No suspicious bony lesions. Visualized ribs appear intact. Soft tissues: Curvilinear calcification adjacent to greater tuberosity of humeral head suggestive of calcific tendinitis. IMPRESSION: No acute right shoulder fracture or dislocation. [id number] acromioclavicular joint osteoarthritis. Suggestion of calcific tendinitis involving distal rotator cuff tendon insertion on greater tuberosity. Dictated by: Peter Feliz M.D. on 08/15/2024 at 17:08 Approved by: Peter Feliz M.D. on 08/15/2024 at 17:09
== END ==
PROVIDERS: Family Provider Internal Medicine; PCP Internal Medicine; Referring Provider Physical Medicine & Rehabilitation; Visit Provider Physical Medicine & Rehabilitation
DX: M19.011 Primary osteoarthritis, right shoulder (principal); M25.511 Pain in right shoulder
CPT/HCPCS: 73030

== ENCOUNTER → 2024-10-09 08:46 | Outpatient (CLI) | payer MEDICARE, OTHER, SELFPAY | LOC: PHYS 08:48 | PROVIDERS: Family Provider Internal Medicine; PCP Internal Medicine; Referring Provider Nurse Practitioner Family; Visit Provider Nurse Practitioner Family | DX: G56.02 Carpal tunnel syndrome, left upper limb (principal) | CPT/HCPCS: 95886; 95909 ==

== ENCOUNTER 2024-11-06 11:16 | Day surgery (SDC) | payer MEDICARE, OTHER, SELFPAY ==
--- NOTE | 2024-11-06 | PATH_ITS ---
[facility] Accession Number: [id number] No. of containers..02 Tissue . 01 Material submitted: . PART A: colon - ASCENDING POLYPS PART B: colon - DESCENDING POLYP . 01 Diagnosis: A. ASCENDING COLON POLYPS: Tubular adenomas. . B. DESCENDING COLON POLYP: Hyperplastic polyp. MRV 11/12/2024 1409 Local . 01 Electronically signed: . Adebayo Jeong MD, PhD, Pathologist NPI- [id number] . 01 Gross description: . Part A: ASCENDING POLYPS: Received in formalin are multiple fragment(s) of young, soft tissue measuring 0.1 x 0.1 x 0.1 cm to 0.5 x 0.3 x 0.2 cm submitted entirely in 1 cassette(s) Part B: DESCENDING POLYP: Received in formalin are multiple fragment(s) of young, soft tissue measuring 0.1 x 0.1 x 0.1 cm to 0.4 x 0.4 x 0.2 cm submitted entirely in 1 cassette(s) /ALEJANDRO 11/11/2024 0041 Local . 01 Pathologist provided ICD-10: D12.2 . 01 CPT . 945944, 625243 Specimen Comment: A courtesy copy of this report has been sent to [phone] Performed at: [address] [address] [address], [place], [place] [id number] MD Gus Ferris MD Phone: [phone]
[2024-11-06 12:35] VITALS: BP 140/91; PULSE 55; RESP 16; TEMP 36.4; O2SAT 95
[2024-11-06] MEDS: LACTATED RINGERS 1,000 ML 42 ML IV (12:37)
--- NOTE | 2024-11-06 13:40 | PM.HP.IH.1 ---
History of Present Illness History of Present Illness Date Patient Seen: 11/06/24 Time Patient Seen: 13:40 Chief complaint: [facility] Narrative: Matty Dunbar is a 69-year-old man here for a colonoscopy. He thinks his last colonoscopy was at least 10 years ago. He does not recall ever having polyps on a colonoscopy before. No family history of colon cancer. [facility] Medical History (Updated 11/06/24 @ 13:41 by Matty Wild MD) Rotator cuff impingement syndrome of right shoulder Bilateral inguinal hernia CTS (carpal tunnel syndrome) Trigger finger (acquired) Abnormal finding on imaging Rib cage dysfunction Impaired fasting glucose Tobacco use disorder Facet arthropathy, cervical Hypotonic bladder Intermittent self-catheterization of bladder Neurogenic bladder Primary osteoarthritis involving multiple joints Renal cyst, right History of left flank pain Incomplete emptying of bladder Cervical radiculopathy at C6 Cervical radicular pain Chronic insomnia Depression, major, recurrent Chronic, continuous use of opioids GERD without esophagitis Mixed hyperlipidemia Essential hypertension Scoliosis (~2013) Chronic back pain (~2013) Hx of migraine headaches Hx of renal calculi Hx of hemorrhoids Melanoma in situ Balanitis Psoriasis (~1973) Right sided sciatica Male erectile disorder Hx of low back pain Hx of allergic rhinitis BPH w urinary obs/LUTS (~2020) Greater trochanteric bursitis of right hip Sacral dysfunction Sensory peripheral neuropathy Facet arthropathy, lumbar Lumbar radiculopathy Lumbar post-laminectomy syndrome Post laminectomy syndrome Colonoscopy planned Neuropathy Surgical History S/P bilateral inguinal hernia repair History of carpal tunnel surgery of right wrist Anesthesia History of knee surgery (~2013) History of back surgery H/O lithotripsy Family History Grandmother Stroke Mother Arthritis, rheumatoid Heart valve disease Father Diabetes mellitus Heart disease Hyperlipidemia Brother Diabetes mellitus Social History marital status: details: 07/16/2022 (Nickie - adrenal cancer), 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, musician number of children: 4 occupational status: other Smoking Status: Never smoker Tobacco: How many years used: 35 alcohol intake: current substance use type: marijuana caffeine: Yes Type(s) of exercise: walking frequency: 3-4 times per week Meds Home Medications and Allergies Home Medications ?Medication ?Instructions ?Recorded ?Confirmed ?Type cholecalciferol (vitamin D3) 25 25 mcg PO DAILY 01/26/20 11/06/24 History mcg (1,000 unit) capsule coenzyme [id number] E 100 mg-100 cap PO 01/26/20 11/03/24 History unit capsule multivitamin (Daily Multi-Vitamin 1 tab PO DAILY 01/26/20 11/06/24 History tablet) omega-3 fatty acids [Fish Oil] 1 cap PO DAILY 05/16/23 11/06/24 History pantoprazole 40 mg tablet,delayed 40 mg PO DAILY #90 tabs 12/10/23 11/06/24 Rx release celecoxib 200 mg capsule (Celebrex) 200 mg PO DAILY #90 caps 03/26/24 11/06/24 Rx tamsulosin 0.4 mg capsule 0.8 mg (2 x 0.4 mg) PO ONCE PM 06/23/24 11/06/24 Rx #180 caps gabapentin 300 mg capsule 300 mg PO TID #270 caps 08/04/24 11/06/24 Rx lisinopril 20 mg tablet 20 mg PO DAILY #90 tabs 08/11/24 11/06/24 Rx trazodone 100 mg tablet 100 mg PO BEDTIME PRN insomnia #90 08/12/24 11/06/24 Rx tabs tadalafil 5 mg tablet 5 mg PO DAILY #90 tabs 08/13/24 11/03/24 Rx oxycodone-acetaminophen 5 mg-325 1 tab PO TID #90 tabs 08/14/24 11/03/24 Rx mg tablet oxycodone-acetaminophen 5 mg-325 1 tab PO TID #90 tabs 08/14/24 11/06/24 Rx mg tablet duloxetine 60 mg capsule,delayed 60 mg PO DAILY #90 caps 09/01/24 11/06/24 Rx release atorvastatin 40 mg tablet 40 mg PO DAILY #90 tabs 09/17/24 11/06/24 Rx tadalafil 20 mg tablet 20 mg PO .PRN 11/03/24 11/06/24 History Allergies Allergy/AdvReac Type Severity Reaction Status Date / Time No Known Drug Allergies Allergy Verified 11/06/24 12:19 Exam Vital Signs (past 8 hours): - 11/06/24 12:35 Temperature 97.6 F Pulse Rate 55 L Respiratory Rate 16 Blood Pressure 140/91 H Pulse Oximetry 95 Oxygen Delivery Method Room Air Oxygen Delivery Method Room Air Const General: healthy appearing Assessment & Plan Assessment and plan (1) Colon cancer screening: Status: Acute Plan Colonoscopy Time-Based Coding :: [TOTAL MINUTES] spent with patient and on the chart (including review of chart, obtaining history, exam, reviewing outside data, placing orders, documenting exam and treatment plan, and counseling patient) on [DATE]. PROFEE Data Entry Technician Document charge(s): No
[2024-11-06 14:20] VITALS: BP 126/83; PULSE 74; RESP 16; TEMP 36.5; O2SAT 96
--- NOTE | 2024-11-06 14:24 | PM.OP.COLON ---
Operative Date/Time/Diagnoses Date of procedure: 11/06/24 Time of procedure: 14:25 Pre-op diagnosis: Colon cancer screening Post-op diagnosis: same Procedure & Clinicians Study performed: Colonoscopy Same procedure as scheduled: Yes Surgeon: Matty Wild Procedure Notes Procedure in detail: Surgeon: Matty Wild MD Anesthesia: Reena Reyes CRNA Procedure: The patient was brought to the endoscopy suite, placed in left lateral decubitus position. The patient was connected to monitoring devices. A time-out was performed. Sedation was administered. Once the patient was adequately sedated, a digital rectal exam was performed and was normal. The scope was then inserted and advanced to the cecum where the appendiceal orifice was identified and photographed. The scope was then slowly withdrawn over greater than 6 minutes. The mucosa was thoroughly inspected. There were 2 small polyps in the ascending colon removed with a cold snare and sent together. There was 1 small polyp in the descending colon removed with a cold snare. The scope was retroflexed in the rectum. No other abnormalities were found. The scope was straightened and removed. The patient was awakened and brought to recovery. Scope withdrawal time: 14 minutes Sedation time: 23 minutes EBL: 2 mL Findings: 2 small polyps of the ascending colon 1 small descending colon polyp Post-procedure Disposition: PACU
[2024-11-06 14:25] VITALS: BP 151/90; PULSE 65; RESP 15; TEMP 36.6; O2SAT 98
== END 2024-11-06 14:40 | disposition home or self-care (01) ==
PROVIDERS: Family Provider Internal Medicine; PCP Internal Medicine; Referring Provider Surgery; Visit Provider Surgery
PROC: 0DJD8ZZ Inspection of Lower Intestinal Tract, Via Natural or Artificial Opening Endoscopic (ICD-10-PCS; CPT 45378; principal; 2024-11-06 13:00)
DX: Z12.11 Encounter for screening for malignant neoplasm of colon (principal); D12.2 Benign neoplasm of ascending colon; K63.5 Polyp of colon
CPT/HCPCS: 45385; J2704

== ENCOUNTER → 2024-12-02 09:58 | Outpatient (CLI) | payer MEDICARE, OTHER, SELFPAY ==
--- NOTE | 2024-12-02 09:59 | DI.US.S_ITS ---
PROCEDURE: US RENAL COMPLETE INDICATIONS: renal cyst TECHNIQUE: Real-time scanning was performed of the kidneys and bladder, with image documentation. COMPARISON: [facility], , US RENAL COMPLETE, 07/11/2024, 13:27. FINDINGS: Kidneys: Right kidney measures 11.5 cm long; left kidney measures 12.1 cm long. Right renal cortical thickness is 1.7 cm; left renal cortical thickness is 2.2 cm. Right inferior cyst is present measuring 11.8 x 11.5 x 11.6 cm compared to 11.8 x 12.4 x 9.5 cm. Bladder: Pre-void bladder volume is 337 mL. Post-void residual is 0 mL. Pre- void images demonstrate no intraluminal masses or stones. On pre-void images, only the ureteral jets are noted with color Doppler interrogation. (Of note, ureteral jets may not be detectable in up to 25% of cases due to insufficient differences in specific gravity between ureteral and bladder urine). Miscellaneous: No free pelvic fluid. IMPRESSION: Stable appearance prominent right renal cyst relatively stable in size. Dictated by: Yasmine Shea M.D. on 12/02/2024 at 16:44 Approved by: Yasmine Shea M.D. on 12/02/2024 at 16:46
== END ==
PROVIDERS: Family Provider Internal Medicine; PCP Internal Medicine; Referring Provider Urology; Visit Provider Urology
DX: N28.1 Cyst of kidney, acquired (principal)
CPT/HCPCS: 76770

== ENCOUNTER → 2024-12-04 08:41 | Outpatient (CLI) | payer MEDICARE, OTHER, SELFPAY | PROVIDERS: Family Provider Internal Medicine; PCP Internal Medicine; Visit Provider Urology | DX: N40.1 Benign prostatic hyperplasia with lower urinary tract symptoms (principal); N13.8 Other obstructive and reflux uropathy | CPT/HCPCS: 87077; 87086; 87186 ==